=== PATIENT | female | born 1945 | race Caucasian/White ===

== ENCOUNTER → 2019-03-29 | Outpatient (CLI) | payer MEDICARE, MEDICAID ==
[2019-03-29 13:30] LABS: HCT 41.4 % (34.0-46.0); HGB 13.5 gm/dL (11.4-16.0); MCHC 32.6 g/dL (31.0-37.0); MCV 101.5 fL (80.0-100.0); Macrocytosis Slight; Mean Platelet Volume 6.9; Platelet Count 296 k/uL (150-450); RBC 4.08 m/uL (3.80-5.40); WBC 9.6 k/uL (3.8-10.6)
[2019-03-29 21:16] LABS: Albumin 4.4 g/dL (3.80-4.90); Anion Gap 9.9 mmol/L (4.00-12.00); BUN/Creat Ratio 18.89 Ratio (12.00-20.00); Calcium 9.6 mg/dL (8.7-10.3); Carbon Dioxide 22.1 mmol/L (21.6-31.8); Globulin 2.2 g/dL (1.6-3.3); Potassium 4.6 mmol/L (3.5-5.5); Total Bilirubin 0.3 mg/dL (0.3-1.2); Total Protein 6.6 g/dL (6.2-8.2)
== END ==
LOC: LABWHC1 12:03
PROVIDERS: ATTEND Surgery Plastic and Reconstructive Surgery
DX: K57.32 Diverticulitis of large intestine without perforation or abscess without bleeding (principal)
CPT/HCPCS: 36415; 80053; 85027

== ENCOUNTER → 2019-04-05 | Outpatient (CLI) | payer MEDICARE, OTHER ==
--- NOTE | 2019-04-05 13:55 | CT ---
EXAMINATION TYPE: CT abdomen pelvis wo con DATE OF EXAM: 04/05/2019 HISTORY: Diverticulitis of large intestine without perforation CT DLP: 639 mGycm. Automated Exposure Control for Dose Reduction was Utilized. TECHNIQUE: CT scan of the abdomen and pelvis is performed with oral but without IV contrast. COMPARISON: CT abdomen and pelvis June 22, 2016 FINDINGS: Within the limitations of a non-contrast study, the following observations are made. LUNG BASES: No significant abnormality is appreciated. LIVER/GB: Cholecystectomy clips redemonstrated. Persistent mild to moderate central intrahepatic bili christiano dilatation without significant extra hepatic biliary dilatation, no significant change from prior . Liver size upper limits of normal slightly diminished from prior. PANCREAS: No significant abnormality is seen. SPLEEN: No significant abnormality is seen. ADRENALS: Stable 2.3 cm right adrenal mass axial image 19, Hounsfield units average minus time consis tent with benign lipid rich adenoma. KIDNEYS: No significant abnormality is seen. BOWEL: Oral contrast has not reached the level of colon making evaluation of distal wall suboptimal. There is suspected wandering cecum into the left mid abdomen with dependent ingested nonabsorbed pill axial image 40. Sigmoid colon is poorly distended. No significant diverticulosis or acute diverticul itis. GENITAL ORGANS: Uterus surgically absent or markedly atrophic. LYMPH NODES: No greater than 1cm abdominal or pelvic lymph nodes are appreciated. OSSEOUS STRUCTURES: Left lateral translation of L5 on L4. Straightening of lumbar spine with moderate to advanced disc space narrowing L4-L5 level redemonstrated. Metallic artifact from left hip arthrop lasty current study causes streak artifact limiting evaluation of pelvic structures. Probably moderat e narrowing right hip joint. OTHER: Moderate calcified plaque of the aorta extends into branch vessels. Ectasia is present up to 2 .9 cm AP diameter axial image 30. No greater than 3.0 cm aneurysmal change. Persistent umbilical chavez ia containing fat and tiny mesenteric vessels on axial image 42 is stable. IMPRESSION: No significant diverticulosis or CT evidence for acute diverticulitis. Wandering see comm ents noted.
== END | disposition home or self-care (01) ==
LOC: RADCTMAIN 10:36
PROVIDERS: ATTEND Surgery Plastic and Reconstructive Surgery
DX: K57.32 Diverticulitis of large intestine without perforation or abscess without bleeding (principal)
CPT/HCPCS: 74176

== ENCOUNTER 2019-05-11 09:15 | Day surgery (SDC) | payer MEDICARE, OTHER ==
[2019-05-09 11:20] VITALS: BMI 20.9
--- NOTE | 2019-05-11 08:20 | P.GSHP ---
History of Present Illness H&P Date: 05/11/19 CHIEF COMPLAINT: GERD and colon screen HISTORY OF PRESENT ILLNESS: The patient is a 74-year-old female who presents with gastroesophageal reflux disease and need for colon screen. Upper and lower endoscopy were offered for further evaluation and management. PAST MEDICAL HISTORY: Please see list. PAST SURGICAL HISTORY: Please see list. MEDICATIONS: Please see list. ALLERGIES: Please see list. SOCIAL HISTORY: No illicit drug use FAMILY HISTORY: No reports of Crohn disease or ulcerative colitis. REVIEW OF ORGAN SYSTEMS: CONSTITUTIONAL: No reports of fevers or chills. GI: Denies any blood in stools or constipation. PHYSICAL EXAM: VITAL SIGNS: Stable GENERAL: Well-developed pleasant in no acute distress. HEENT: No scleral icterus. Extraocular movements grossly intact. Moist buccal mucosa. NECK: Supple without lymphadenopathy. CHEST: Unlabored respirations. Equal bilateral excursions. CARDIOVASCULAR: Regular rate and rhythm. Distal 2+ pulses. ABDOMEN: Soft, nondistended. MUSCULOSKELETAL: No clubbing, cyanosis, or edema. ASSESSMENT: 1. Gastroesophageal reflux disease 2. Colon screen. PLAN: 1. Recommend proceeding with an upper and lower endoscopy Past Medical History Past Medical History: GERD/Reflux, Hyperlipidemia, Hypertension, Thyroid Disorder Additional Past Medical History / Comment(s): hernia, anemia History of Any Multi-Drug Resistant Organisms: None Reported Past Surgical History: Appendectomy, Back Surgery, Cholecystectomy, Hysterectomy, Joint Replacement, Orthopedic Surgery Additional Past Surgical History / Comment(s): right knee scope. COLONOSCOPY/EGD. LT BRITNEY Past Anesthesia/Blood Transfusion Reactions: No Reported Reaction Smoking Status: Current every day smoker - Past Family History Mother History Unknown: Yes Father History Unknown: Yes Medications and Allergies Home Medications Medication Instructions Recorded Confirmed Type Folic Acid 0.4 mg PO DAILY 06/22/16 05/09/19 History Spironolactone [Aldactone] 25 mg PO DAILY 06/22/16 05/09/19 History Sucralfate [Carafate] 1 gm PO BID 06/22/16 05/09/19 History Cyanocobalamin [Vitamin B-12] 1,000 mcg PO DAILY 07/02/16 05/09/19 History Ferrous Sulfate [Iron (65 MG 325 mg PO DAILY 07/02/16 05/09/19 History Elemental)] Lovastatin [Mevacor] 40 mg PO HS 07/09/16 05/09/19 History Pantoprazole [Protonix] 40 mg PO DAILY tablet. 07/09/16 05/09/19 Rx Aspirin [Adult Low Dose Aspirin EC] 81 mg PO DAILY 05/09/19 05/09/19 History Atenolol [Tenormin] 25 mg PO DAILY 05/09/19 05/09/19 History Cholecalciferol (Vitamin D3) 2,000 unit PO DAILY 05/09/19 05/09/19 History [Vitamin D3] Gabapentin [Neurontin] 300 mg PO HS 05/09/19 05/09/19 History Levothyroxine Sodium [Synthroid] 112 mcg PO DAILY 05/09/19 05/09/19 History Potassium Chloride ER [K-Dur 20] 20 meq PO DAILY 05/09/19 05/09/19 History Venlafaxine HCl [Effexor XR] 150 mg PO DAILY 05/09/19 05/09/19 History Venlafaxine HCl [Effexor] 75 mg PO DAILY 05/09/19 05/09/19 History lamoTRIgine [LaMICtal] 25 mg PO DAILY 05/09/19 05/09/19 History Allergies Allergy/AdvReac Type Severity Reaction Status Date / Time No Known Allergies Allergy Verified 05/09/19 11:01
[~2019-05-11 09:15] MED LIST: LACTATED RINGERS 1,000 ML IV SCH; LIDOCAINE 1% 20 ML VIAL (10MG/ML) FOR IV START INTRADERMA PRN
[2019-05-11 09:48] VITALS: TEMP 97.7
[2019-05-11] MEDS ORDERED: PROPOFOL 10 MG/ML 20 ML VIAL IV ONE (10:14)
[2019-05-11] MEDS ORDERED: LIDOCAINE 1% INJ 10MG/ML (20 ML MDV) ONE (10:14)
[2019-05-11] MEDS ORDERED: MIDAZOLAM 2 MG/2 ML VIAL ONE (10:14)
[2019-05-11 10:54] VITALS: BP 98/53; PULSE 55; RESP 14
--- NOTE | 2019-05-11 10:57 | P.PCN ---
Date of Procedure: 05/11/19 Description of Procedure: PREOPERATIVE DIAGNOSIS: Change in bowel habits with colitis POSTOPERATIVE DIAGNOSIS: Change in bowel habits with colitis Ascending colon adenomas OPERATION: Colonoscopy to the ileocecal valve and appendiceal orifice. Colonoscopy with hot snare polypectomy Colonoscopy with cold forceps biopsy SURGEON: Eloisa Cope MD. ANESTHESIA: MAC. INDICATIONS: The patient is a 74-year-old female who presents with change in bowel habits and colitis. Benefits and risks were described and informed consent was obtained. DESCRIPTION OF PROCEDURE: The patient had undergone Suprep. She had been brought into the operating room and laid in the left lateral decubitus position. After adequate intravenous sedation, the rectum was examined with 2% lidocaine jelly. External hemorrhoids were encountered. The rectal tone was within normal limits. No lesions were palpated in the rectal vault. An Olympus colonoscope was advanced until the ileocecal valve and appendiceal orifice were clearly viewed. The prep was excellent. No scattered diverticulosis was encountered. Ascending olonic polyps were found and cold forcep biopsy or snare polypectomy. No acutecolitis was found. Retroflexion of the scope demonstrated grade 1 internal hemorrhoids without active bleeding or inflammation. The colon was desufflated. The patient had tolerated the procedure well. Withdrawal time was over 6 minutes. FINDINGS: Aronchick preparation quality scale 1 (1-5) Internal hemorrhoids, grade 1 External hemorrhoids, grade 1. No arteriovenous malformations No sigmoid diverticulosis Removal of 2 polyps: - Snare polypectomy proximal ascending colon, 8 mm tubulovillous adenoma polyp. - Cold forceps biopsy distal ascending colon, 4 mm flat villous adenoma polyp. No focal colitis. RECOMMENDATIONS: Repeat colonoscopy 3 years, 2021 Plan - Discharge Summary Discharge Rx Participant: No New Discharge Prescriptions: No Action Folic Acid 0.4 mg PO DAILY Sucralfate [Carafate] 1 gm PO BID Spironolactone [Aldactone] 25 mg PO DAILY Cyanocobalamin [Vitamin B-12] 1,000 mcg PO DAILY Ferrous Sulfate [Iron (65 MG Elemental)] 325 mg PO DAILY Pantoprazole [Protonix] 40 mg PO DAILY tablet. Lovastatin [Mevacor] 40 mg PO HS Potassium Chloride ER [K-Dur 20] 20 meq PO DAILY Levothyroxine Sodium [Synthroid] 112 mcg PO DAILY lamoTRIgine [LaMICtal] 25 mg PO DAILY Atenolol [Tenormin] 25 mg PO DAILY Venlafaxine HCl [Effexor] 75 mg PO DAILY Venlafaxine HCl [Effexor XR] 150 mg PO DAILY Gabapentin [Neurontin] 300 mg PO HS Cholecalciferol (Vitamin D3) [Vitamin D3] 2,000 unit PO DAILY Aspirin [Adult Low Dose Aspirin EC] 81 mg PO DAILY Discharge Medication List Folic Acid 0.4 mg PO DAILY 06/22/16 [History] Spironolactone [Aldactone] 25 mg PO DAILY 06/22/16 [History] Sucralfate [Carafate] 1 gm PO BID 06/22/16 [History] Cyanocobalamin [Vitamin B-12] 1,000 mcg PO DAILY 07/02/16 [History] Ferrous Sulfate [Iron (65 MG Elemental)] 325 mg PO DAILY 07/02/16 [History] Lovastatin [Mevacor] 40 mg PO HS 07/09/16 [History] Pantoprazole [Protonix] 40 mg PO DAILY tablet. 07/09/16 [Rx] Aspirin [Adult Low Dose Aspirin EC] 81 mg PO DAILY 05/09/19 [History] Atenolol [Tenormin] 25 mg PO DAILY 05/09/19 [History] Cholecalciferol (Vitamin D3) [Vitamin D3] 2,000 unit PO DAILY 05/09/19 [History] Gabapentin [Neurontin] 300 mg PO HS 05/09/19 [History] Levothyroxine Sodium [Synthroid] 112 mcg PO DAILY 05/09/19 [History] Potassium Chloride ER [K-Dur 20] 20 meq PO DAILY 05/09/19 [History] Venlafaxine HCl [Effexor XR] 150 mg PO DAILY 05/09/19 [History] Venlafaxine HCl [Effexor] 75 mg PO DAILY 05/09/19 [History] lamoTRIgine [LaMICtal] 25 mg PO DAILY 05/09/19 [History]
--- NOTE | 2019-05-11 11:01 | P.PCN ---
Date of Procedure: 05/11/19 Description of Procedure: PREOPERATIVE DIAGNOSIS: Gastroesophageal reflux disease. Epigastric abdominal pain POSTOPERATIVE DIAGNOSIS: Gastroesophageal reflux disease. 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 SURGEON: Eloisa Cope MD ANESTHESIA: MAC. INDICATIONS: The patient is a 74-year-old female who presents with a history of reflux disease and abdominal pain. Benefits and risks of the procedure were described. Informed consent was obtained. DESCRIPTION: The patient was brought into the endoscopy suite and laid in the left lateral decubitus position. An Olympus gastroscope was passed along the posterior oropharynx down to the distal esophagus where the squamocolumnar junction was encountered at 40 cm from the incisors. The stomach was entered and no bile reflux was found. Additional findings are listed below. Biopsies with cold forceps were obtained of the antrum. The first through third portion of the duodenum was examined with less than 3 mm angiodysplasia at third portion without bleeding. Retroflexion of the scope confirmed Hill grade 2 lower esophageal valve. The squamocolumnar junction demonstrated LA grade B erosive esophagitis. The stomach was desufflated. The patient tolerated the procedure well. FINDINGS: Squamocolumnar junction 40 cm from the incisors. Diaphragmatic hiatus at 42 cm. Hiatal hernia, 2 cm Hill grade 2 lower esophageal valve. LA grade B erosive esophagitis. No active duodenitis. Chronic gastritis with recent bleed Chronic superficial ulcers and antrum biopsied Angiodysplasia per portion of duodenum 2 mm without bleeding RECOMMENDATIONS: Upper endoscopy as needed. Treatment for ulcers for 4 weeks with proton pump inhibitor and Carafate
== END 2019-05-11 11:49 | disposition home or self-care (01) ==
LOC: ORWHC2ENDO 09:15
PROVIDERS: ATTEND Surgery Plastic and Reconstructive Surgery
DX: D12.2 Benign neoplasm of ascending colon (principal); K52.9 Noninfective gastroenteritis and colitis, unspecified; K64.0 First degree hemorrhoids; K64.4 Residual hemorrhoidal skin tags; K29.50 Unspecified chronic gastritis without bleeding; K21.0 Gastro-esophageal reflux disease with esophagitis; K22.10 Ulcer of esophagus without bleeding; K25.7 Chronic gastric ulcer without hemorrhage or perforation; K44.9 Diaphragmatic hernia without obstruction or gangrene; K31.819 Angiodysplasia of stomach and duodenum without bleeding; I10 Essential (primary) hypertension; E78.5 Hyperlipidemia, unspecified; E07.9 Disorder of thyroid, unspecified; D64.9 Anemia, unspecified; Z79.82 Long term (current) use of aspirin; Z79.890 Hormone replacement therapy; Z79.899 Other long term (current) drug therapy; Z90.49 Acquired absence of other specified parts of digestive tract; Z96.642 Presence of left artificial hip joint; Z98.890 Other specified postprocedural states
CPT/HCPCS: 88305; 45380; 45385; 43239; J2250; J2001; J2704

== ENCOUNTER 2021-03-22 14:06 | Inpatient (IN) | payer MEDICARE, OTHER ==
[2021-03-22] MEDS ORDERED: ONDANSETRON 4 MG/2 ML VIAL IVP STA (14:44)
[2021-03-22] MEDS ORDERED: SODIUM CHLORIDE 0.9% 1,000 ML IV STA (14:44)
[2021-03-22 15:17] LABS: Basophils % (A) 1 %; Eosinophils # (A) 0.2 k/uL (0-0.7); Eosinophils % (A) 2 %; HCT 44.4 % (34.0-46.0); HGB 15.1 gm/dL (11.4-16.0); Lymphocytes # (A) 1.5 k/uL (1.0-4.8); Lymphocytes % (A) 19 %; MCH 35.5 pg (25.0-35.0); MCV 104.5 fL (80.0-100.0); Macrocytosis Slight; Mean Platelet Volume 7.8; Monocytes # (A) 0.5 k/uL (0-1.0); Monocytes % (A) 6 %; Neutrophils # (A) 5.5 k/uL (1.3-7.7); Neutrophils % (A) 71 %; Platelet Count 216 k/uL (150-450); RBC 4.25 m/uL (3.80-5.40); RDW 13.9 % (11.5-15.5); WBC 7.8 k/uL (3.8-10.6)
[2021-03-22 15:26] LABS: ALT 19 U/L (4-34); AST 25 U/L (14-36); African American GFR (CKD) >90 (>60 ml/min/1.73 sqM); Albumin 4.2 g/dL (3.5-5.0); Alkaline Phosphatase 90 U/L (38-126); Anion Gap 6 mmol/L; Blood Urea Nitrogen 11 mg/dL (7-17); Calcium 9.8 mg/dL (8.4-10.2); Carbon Dioxide 28 mmol/L (22-30); Chloride 105 mmol/L (98-107); Glucose 103 mg/dL (74-99); Non-African American GFR(CKD) >90 (>60 ml/min/1.73 sqM); Potassium 2.9 mmol/L (3.5-5.1); Sodium 139 mmol/L (137-145); Total Bilirubin 0.9 mg/dL (0.2-1.3); Total Protein 6.6 g/dL (6.3-8.2)
[2021-03-22] MEDS ORDERED: POTASSIUM CHLORIDE ER 10 MEQ TAB.ER.PRT PO STA (15:30)
[2021-03-22 15:46] LABS: Prothrombin Time 10.3 sec (9.0-12.0)
[2021-03-22 15:48] LABS: Partial Thromboplastin Time 21.1 sec (22.0-30.0)
[2021-03-22 16:01] LABS: Appearance,Urine Clear (Clear); Bacteria,Urine Rare /hpf; Bilirubin,Urine Negative (Negative); Blood,Urine Trace (Negative); Color,Urine Yellow; Glucose,Urine (UA) Negative (Negative); Ketones,Urine Negative (Negative); Leukocyte Esterase,Urine Trace (Negative); Mucus,Urine Rare /hpf; Nitrite,Urine Negative (Negative); Protein,Urine 1+ (Negative); RBC,Urine 10 /hpf (0-5); Specific Gravity,Urine 1.011 (1.001-1.035); Squamous Epithelial Cell,Urine 1 /hpf (0-4); Urobilinogen,Urine <2.0 mg/dL (<2.0); WBC,Urine 2 /hpf (0-5)
--- NOTE | 2021-03-22 16:05 | ED ---
Weakness HPI - General Chief complaint: Weakness Stated complaint: ABD pain,SOB Time Seen by Provider: 03/22/21 14:39 Source: patient Mode of arrival: ambulatory Limitations: no limitations - History of Present Illness Initial comments: 76-year-old female presenting to the emergency department with a chief complaint of weakness and abdominal pain. Patient reports she did progressively feeling weaker over the last 2-3 months. Patient reports she has lost approximately 40 pounds of unattended weight loss over the last 10 months. States she has seen Dr. Maurice for chronic abdominal pain and had an upper and lower scope performed with no acute findings. She is not sure how long ago with these tests were performed. States over the last week she's had decreased oral intake is not able to take her pills due to not being able to swallow. However, states she still able to tolerate by mouth but does have decreased appetite. Her daughter states the patient has stopped taking her medications over the last week. She has also stopped taking care of herself. She denies nausea or vomiting but does report some diarrhea. Denies any vaginal symptoms. Does report increased urinary frequency over the last several months but denies any urgency or dysuria. Surgical history of appendectomy cholecystectomy. No hematuria or hematochezia or melena. - Related Data Home Medications Medication Instructions Recorded Confirmed Levothyroxine Sodium 125 mcg PO DAILY 03/22/21 03/22/21 Allergies Allergy/AdvReac Type Severity Reaction Status Date / Time No Known Allergies Allergy Verified 03/22/21 16:45 Review of Systems ROS Statement: Those systems with pertinent positive or pertinent negative responses have been documented in the HPI. ROS Other: All systems not noted in ROS Statement are negative. Past Medical History Past Medical History: GERD/Reflux, Hyperlipidemia, Hypertension, Thyroid Disorder Additional Past Medical History / Comment(s): hernia, anemia History of Any Multi-Drug Resistant Organisms: None Reported Past Surgical History: Appendectomy, Back Surgery, Cholecystectomy, Hysterectomy, Joint Replacement, Orthopedic Surgery Additional Past Surgical History / Comment(s): right knee scope. COLONOSCOPY/EGD. LT BRITNEY Past Anesthesia/Blood Transfusion Reactions: No Reported Reaction Past Psychological History: Anxiety, Depression Past Alcohol Use History: None Reported Past Drug Use History: None Reported - Past Family History Mother History Unknown: Yes Father History Unknown: Yes General Exam Limitations: no limitations General appearance: alert, in no apparent distress Head exam: Present: atraumatic, normocephalic, normal inspection Eye exam: Present: normal appearance, PERRL, EOMI Pupils: Present: normal accommodation ENT exam: Present: normal exam, normal oropharynx, mucous membranes moist Neck exam: Present: normal inspection, full ROM. Absent: tenderness Respiratory exam: Present: normal lung sounds bilaterally. Absent: respiratory distress, wheezes, rales, rhonchi, stridor Cardiovascular Exam: Present: regular rate, normal rhythm, normal heart sounds. Absent: systolic murmur GI/Abdominal exam: Present: soft, tenderness (Right upper quadrant epigastric abdominal tenderness.). Absent: distended, guarding Extremities exam: Present: normal inspection, full ROM, normal capillary refill. Absent: tenderness, pedal edema, joint swelling Back exam: Present: normal inspection, full ROM. Absent: tenderness, CVA tenderness (R), CVA tenderness (L) Neurological exam: Present: alert, oriented X3, CN II-XII intact, normal gait Psychiatric exam: Present: normal affect, normal mood Skin exam: Present: warm, dry, intact, normal color Course Vital Signs 03/22/21 03/22/21 03/22/21 14:13 14:46 17:41 Temperature 98.0 F Pulse Rate 86 84 Pulse Rate [ 77 Pediatric Oncology Nurse ] Respiratory 19 20 18 Rate Blood Pressure 141/72 154/78 O2 Sat by Pulse 98 97 Oximetry Medical Decision Making - Medical Decision Making 76-year-old female presenting to emergency Department with a chief complaint of abdominal pain and weakness. On physical examination, epigastric abdominal tenderness. I obtained the results from abdomen and pelvis with contrast CT imaging that was performed at [facility] which revealed infrarenal abdominal aortic aneurysm measuring 3.1 cm in diameter. Follow-up imaging was recommended in 3 years. These seem to be stable findings. Laboratory work shows hypokalemia with potassium of 2.9. Patient was given oral k-sudhir. I spoke to to admit the patient for a consult to and social work. He recommended outpatient follow-up instead and refuses admission. I contacted [facility] who will admit patient for Dr. Viveros. Case was discussed with Dr. Peterson who is agreeable with the plan. - Lab Data Result diagrams: 03/22/21 15:07 03/22/21 15:07 Lab Results 03/22/21 03/22/21 03/22/21 Range/Units 15:07 15:07 15:07 WBC 7.8 (3.8-10.6) k/uL RBC 4.25 (3.80-5.40) m/uL Hgb 15.1 (11.4-16.0) gm/dL Hct 44.4 (34.0-46.0) % MCV 104.5 H (80.0-100.0) fL MCH 35.5 H (25.0-35.0) pg MCHC 34.0 (31.0-37.0) g/dL RDW 13.9 (11.5-15.5) % Plt Count 216 (150-450) k/uL MPV 7.8 Neutrophils % 71 % Lymphocytes % 19 % Monocytes % 6 % Eosinophils % 2 % Basophils % 1 % Neutrophils # 5.5 (1.3-7.7) k/uL Lymphocytes # 1.5 (1.0-4.8) k/uL Monocytes # 0.5 (0-1.0) k/uL Eosinophils # 0.2 (0-0.7) k/uL Basophils # 0.0 (0-0.2) k/uL Macrocytosis Slight PT 10.3 (9.0-12.0) sec INR 1.0 (<1.2) APTT 21.1 L (22.0-30.0) sec Sodium 139 (137-145) mmol/L Potassium 2.9 L (3.5-5.1) mmol/L Chloride 105 (98-107) mmol/L Carbon Dioxide 28 (22-30) mmol/L Anion Gap 6 mmol/L BUN 11 (7-17) mg/dL Creatinine 0.54 (0.52-1.04) mg/dL Est GFR (CKD-EPI)AfAm >90 (>60 ml/min/1.73 sqM) Est GFR (CKD-EPI)NonAf >90 (>60 ml/min/1.73 sqM) Glucose 103 H (74-99) mg/dL Plasma Lactic Acid Oskar (0.7-2.0) mmol/L Calcium 9.8 (8.4-10.2) mg/dL Magnesium (1.6-2.3) mg/dL Total Bilirubin 0.9 (0.2-1.3) mg/dL AST 25 (14-36) U/L ALT 19 (4-34) U/L Alkaline Phosphatase 90 (38-126) U/L Troponin I (0.000-0.034) ng/mL Total Protein 6.6 (6.3-8.2) g/dL Albumin 4.2 (3.5-5.0) g/dL Urine Color Urine Appearance (Clear) Urine pH (5.0-8.0) Ur Specific [place] (1.001-1.035) Urine Protein (Negative) Urine Glucose (UA) (Negative) Urine Ketones (Negative) Urine Blood (Negative) Urine Nitrite (Negative) Urine Bilirubin (Negative) Urine Urobilinogen (<2.0) mg/dL Ur Leukocyte Esterase (Negative) Urine RBC (0-5) /hpf Urine WBC (0-5) /hpf Ur Squamous Epith Cells (0-4) /hpf Urine Bacteria (None) /hpf Urine Mucus (None) /hpf 03/22/21 03/22/21 03/22/21 Range/Units 15:07 15:07 15:07 WBC (3.8-10.6) k/uL RBC (3.80-5.40) m/uL Hgb (11.4-16.0) gm/dL Hct (34.0-46.0) % MCV (80.0-100.0) fL MCH (25.0-35.0) pg MCHC (31.0-37.0) g/dL RDW (11.5-15.5) % Plt Count (150-450) k/uL MPV Neutrophils % % Lymphocytes % % Monocytes % % Eosinophils % % Basophils % % Neutrophils # (1.3-7.7) k/uL Lymphocytes # (1.0-4.8) k/uL Monocytes # (0-1.0) k/uL Eosinophils # (0-0.7) k/uL Basophils # (0-0.2) k/uL Macrocytosis PT (9.0-12.0) sec INR (<1.2) APTT (22.0-30.0) sec Sodium (137-145) mmol/L Potassium (3.5-5.1) mmol/L Chloride (98-107) mmol/L Carbon Dioxide (22-30) mmol/L Anion Gap mmol/L BUN (7-17) mg/dL Creatinine (0.52-1.04) mg/dL Est GFR (CKD-EPI)AfAm (>60 ml/min/1.73 sqM) Est GFR (CKD-EPI)NonAf (>60 ml/min/1.73 sqM) Glucose (74-99) mg/dL Plasma Lactic Acid Oskar 1.2 (0.7-2.0) mmol/L Calcium (8.4-10.2) mg/dL Magnesium 2.1 (1.6-2.3) mg/dL Total Bilirubin (0.2-1.3) mg/dL AST (14-36) U/L ALT (4-34) U/L Alkaline Phosphatase (38-126) U/L Troponin I <0.012 (0.000-0.034) ng/mL Total Protein (6.3-8.2) g/dL Albumin (3.5-5.0) g/dL Urine Color Urine Appearance (Clear) Urine pH (5.0-8.0) Ur Specific [place] (1.001-1.035) Urine Protein (Negative) Urine Glucose (UA) (Negative) Urine Ketones (Negative) Urine Blood (Negative) Urine Nitrite (Negative) Urine Bilirubin (Negative) Urine Urobilinogen (<2.0) mg/dL Ur Leukocyte Esterase (Negative) Urine RBC (0-5) /hpf Urine WBC (0-5) /hpf Ur Squamous Epith Cells (0-4) /hpf Urine Bacteria (None) /hpf Urine Mucus (None) /hpf 03/22/21 Range/Units 15:13 WBC (3.8-10.6) k/uL RBC (3.80-5.40) m/uL Hgb (11.4-16.0) gm/dL Hct (34.0-46.0) % MCV (80.0-100.0) fL MCH (25.0-35.0) pg MCHC (31.0-37.0) g/dL RDW (11.5-15.5) % Plt Count (150-450) k/uL MPV Neutrophils % % Lymphocytes % % Monocytes % % Eosinophils % % Basophils % % Neutrophils # (1.3-7.7) k/uL Lymphocytes # (1.0-4.8) k/uL Monocytes # (0-1.0) k/uL Eosinophils # (0-0.7) k/uL Basophils # (0-0.2) k/uL Macrocytosis PT (9.0-12.0) sec INR (<1.2) APTT (22.0-30.0) sec Sodium (137-145) mmol/L Potassium (3.5-5.1) mmol/L Chloride (98-107) mmol/L Carbon Dioxide (22-30) mmol/L Anion Gap mmol/L BUN (7-17) mg/dL Creatinine (0.52-1.04) mg/dL Est GFR (CKD-EPI)AfAm (>60 ml/min/1.73 sqM) Est GFR (CKD-EPI)NonAf (>60 ml/min/1.73 sqM) Glucose (74-99) mg/dL Plasma Lactic Acid Oskar (0.7-2.0) mmol/L Calcium (8.4-10.2) mg/dL Magnesium (1.6-2.3) mg/dL Total Bilirubin (0.2-1.3) mg/dL AST (14-36) U/L ALT (4-34) U/L Alkaline Phosphatase (38-126) U/L Troponin I (0.000-0.034) ng/mL Total Protein (6.3-8.2) g/dL Albumin (3.5-5.0) g/dL Urine Color Yellow Urine Appearance Clear (Clear) Urine pH 7.0 (5.0-8.0) Ur Specific [place] 1.011 (1.001-1.035) Urine Protein 1+ H (Negative) Urine Glucose (UA) Negative (Negative) Urine Ketones Negative (Negative) Urine Blood Trace H (Negative) Urine Nitrite Negative (Negative) Urine Bilirubin Negative (Negative) Urine Urobilinogen <2.0 (<2.0) mg/dL Ur Leukocyte Esterase Trace H (Negative) Urine RBC 10 H (0-5) /hpf Urine WBC 2 (0-5) /hpf Ur Squamous Epith Cells 1 (0-4) /hpf Urine Bacteria Rare H (None) /hpf Urine Mucus Rare H (None) /hpf Disposition Clinical Impression: Abdominal pain, Failure to thrive, Hypokalemia Disposition: ADMITTED IP TO THIS HOSP Condition: Fair Is patient prescribed a controlled substance at d/c from ED?: No Referrals: None,Stated [Primary Care Provider] - 1-2 days Time of Disposition: 18:38
[2021-03-22] MEDS ORDERED: ALPRAZolam 1 MG TAB PO STA (17:30)
[2021-03-22] MEDS ORDERED: MORPHINE SULFATE 2 MG/ML SYRINGE IVP ONE (17:31)
[2021-03-22] MEDS ORDERED: NALOXONE 0.4 MG/ML 1 ML VIAL IV PRN (18:29)
[2021-03-22] MEDS: MORPHINE SULFATE 4 MG/ML SYRINGE IVP PRN (21:15)
[2021-03-22] MEDS: SODIUM CHLORIDE 0.9% 1,000 ML IV SCH (21:21)
[2021-03-23] MEDS: PANTOPRAZOLE 40 MG/10 ML VIAL IV SCH (08:43)
[2021-03-23] MEDS: MORPHINE SULFATE 4 MG/ML SYRINGE IVP PRN ×2 (11:02→23:47)
[2021-03-23] MEDS ORDERED: Potassium Replacement Protocol 1 EACH MISC MISCELLANE PRN (11:09)
[2021-03-23 11:17] VITALS: BMI 15.2
--- NOTE | 2021-03-23 11:22 | P.GSCN ---
History of Present Illness Consult date: 03/23/21 Reason for Consult: Abdominal pain History of present illness: This is a 76-year-old female who presents the hospital with complaints of epigas tric abdominal pain. Patient's been previously scope with Dr. Green found have evidence of peptic ulcer disease. Patient states her pain is in the epigastric area. She is requesting narcotic pain medication Past Medical History Past Medical History: GERD/Reflux, Hyperlipidemia, Hypertension, Thyroid Disorder Additional Past Medical History / Comment(s): hernia, anemia History of Any Multi-Drug Resistant Organisms: None Reported Past Surgical History: Appendectomy, Back Surgery, Cholecystectomy, Hysterectomy, Joint Replacement, Orthopedic Surgery Additional Past Surgical History / Comment(s): right knee scope. COLONOSCOPY/EGD. Bilateral total hip Past Anesthesia/Blood Transfusion Reactions: No Reported Reaction Past Psychological History: Anxiety, Depression Smoking Status: Current every day smoker Past Alcohol Use History: None Reported Additional Past Alcohol Use History / Comment(s): SMOKES 1-2 packs daily,started at 17yo Past Drug Use History: None Reported - Past Family History Mother History Unknown: Yes Father History Unknown: Yes Medications and Allergies Home Medications Medication Instructions Recorded Confirmed Type Levothyroxine Sodium 125 mcg PO DAILY 03/22/21 03/22/21 History Allergies Allergy/AdvReac Type Severity Reaction Status Date / Time No Known Allergies Allergy Verified 03/22/21 16:45 Surgical - Exam Vital Signs Temp Pulse Resp BP Pulse Ox 98.0 F 86 19 141/72 98 03/22/21 14:13 03/22/21 14:13 03/22/21 14:13 03/22/21 14:13 03/22/21 14:13 - General well developed, well nourished, no distress - Eyes PERRL - ENT normal pinna - Neck no masses - Respiratory normal expansion - Cardiovascular Rhythm: regular - Abdomen Abdomen: soft, non tender Results - Labs 03/22/21 15:07 03/23/21 08:12 Abnormal Lab Results - Last 24 Hours (Table) 03/22/21 03/22/21 03/22/21 Range/Units 15:07 15:07 15:07 MCV 104.5 H (80.0-100.0) fL MCH 35.5 H (25.0-35.0) pg APTT 21.1 L (22.0-30.0) sec Potassium 2.9 L (3.5-5.1) mmol/L Glucose 103 H (74-99) mg/dL Urine Protein (Negative) Urine Blood (Negative) Ur Leukocyte Esterase (Negative) Urine RBC (0-5) /hpf Urine Bacteria (None) /hpf Urine Mucus (None) /hpf 03/22/21 03/23/21 Range/Units 15:13 08:12 MCV (80.0-100.0) fL MCH (25.0-35.0) pg APTT (22.0-30.0) sec Potassium 3.3 L (3.5-5.1) mmol/L Glucose (74-99) mg/dL Urine Protein 1+ H (Negative) Urine Blood Trace H (Negative) Ur Leukocyte Esterase Trace H (Negative) Urine RBC 10 H (0-5) /hpf Urine Bacteria Rare H (None) /hpf Urine Mucus Rare H (None) /hpf Diabetes panel 03/22/21 03/23/21 Range/Units 15:07 08:12 Sodium 139 (137-145) mmol/L Potassium 2.9 L 3.3 L (3.5-5.1) mmol/L Chloride 105 (98-107) mmol/L Carbon Dioxide 28 (22-30) mmol/L BUN 11 (7-17) mg/dL Creatinine 0.54 (0.52-1.04) mg/dL Glucose 103 H (74-99) mg/dL Calcium 9.8 (8.4-10.2) mg/dL AST 25 (14-36) U/L ALT 19 (4-34) U/L Alkaline Phosphatase 90 (38-126) U/L Total Protein 6.6 (6.3-8.2) g/dL Albumin 4.2 (3.5-5.0) g/dL Calcium panel 03/22/21 Range/Units 15:07 Calcium 9.8 (8.4-10.2) mg/dL Albumin 4.2 (3.5-5.0) g/dL Pituitary panel 03/22/21 03/23/21 Range/Units 15:07 08:12 Sodium 139 (137-145) mmol/L Potassium 2.9 L 3.3 L (3.5-5.1) mmol/L Chloride 105 (98-107) mmol/L Carbon Dioxide 28 (22-30) mmol/L BUN 11 (7-17) mg/dL Creatinine 0.54 (0.52-1.04) mg/dL Glucose 103 H (74-99) mg/dL Calcium 9.8 (8.4-10.2) mg/dL Adrenal panel 03/22/21 03/23/21 Range/Units 15:07 08:12 Sodium 139 (137-145) mmol/L Potassium 2.9 L 3.3 L (3.5-5.1) mmol/L Chloride 105 (98-107) mmol/L Carbon Dioxide 28 (22-30) mmol/L BUN 11 (7-17) mg/dL Creatinine 0.54 (0.52-1.04) mg/dL Glucose 103 H (74-99) mg/dL Calcium 9.8 (8.4-10.2) mg/dL Total Bilirubin 0.9 (0.2-1.3) mg/dL AST 25 (14-36) U/L ALT 19 (4-34) U/L Alkaline Phosphatase 90 (38-126) U/L Total Protein 6.6 (6.3-8.2) g/dL Albumin 4.2 (3.5-5.0) g/dL Assessment and Plan Assessment: Epigastric pain with history of peptic ulcer disease. Patient will undergo EGD with Dr. Green on Thursday
[2021-03-23] MEDS: POTASSIUM CHLORIDE ER 20 MEQ TAB.ER PO SCH ×2 (12:09→13:09)
--- NOTE | 2021-03-23 12:19 | CONS ---
CONSULTATION DATE OF SERVICE: 03/23/2021. REQUESTING PHYSICIAN: Dr. Viveros. REASON FOR CONSULTATION: Abdominal pain, dysphagia, progressive weight loss of 30 pounds in the last one year duration. HISTORY OF PRESENT ILLNESS: The patient is a 76-year-old white female, known to me from her previous office visits, who was being evaluated for progressive weight loss of 40 pounds in the last one year duration associated with abdominal pain and difficulty swallowing. In fact, she was last seen in the office in November of this year for the above symptoms and she had extensive investigations done. She had an EGD colonoscopy by Dr. Cope in April of 2019 that showed mild gastritis, esophagitis, small gastric ulcers and colon polyp. Subsequently, she continued to have progressive weight loss and she continued to have persistent abdominal pain and was investigated with CT of the abdomen and pelvis in April of 2020 that was unremarkable in August of this year. She had an upper GI small bowel series done that was unremarkable. She had a repeat upper endoscopy done by [facility] in [facility] in January of 2020, that showed mild gastritis but otherwise no evidence of esophagitis or esophageal stricture. She was treated with PPIs and Carafate with no help. She had an MRI of the pancreas that did not show any pancreatic abnormality. In January of [address] angiogram that did not show any significant pathology except that she had a 3 cm aneurysm in the abdominal aorta. Now she presents to the emergency room complaining of abdominal pain mostly in the epigastric area radiating to the lower abdominal area associated with some nausea, dysphagia, and chronic constipation. She denies any rectal bleeding or melena. She thinks she lost about 40 pounds in the last one year duration. She states her appetite has been good. She reports no emesis. PAST MEDICAL HISTORY: No known drug allergies. The past medical history GERD, hyperlipidemia, hypertension, hypothyroidism. PAST SURGICAL HISTORY: EGD, colonoscopy, hernia repair, back surgery, appendectomy, cholecystectomy, hysterectomy. SOCIAL HISTORY: No smoking no alcohol use. FAMILY HISTORY: Unremarkable. REVIEW OF SYSTEMS: CARDIOPULMONARY: She denies any chest pain or shortness of breath. : No dysuria or hematuria. MUSCULOSKELETAL: Unremarkable. SKIN: Unremarkable. ENDOCRINE: Unremarkable. PSYCHIATRIC: Unremarkable. PSYCHIATRY: History of anxiety and depression. NEUROLOGY: Unremarkable. ENT/VISION: Unremarkable. CONSTITUTIONAL: Recent weight loss of 40 pounds but no fever chills night sweats. PHYSICAL EXAMINATION: She appears comfortable. No apparent distress. VITAL SIGNS: Stable. Blood pressure is 133/66, pulse rate is 76, temperature 98. HEENT examination unremarkable sclerae anicteric oral cavity no lesions. NECK: No JVD or lymph node enlargement. CHEST: Clear to auscultation. HEART: Regular rate and rhythm. ABDOMEN: Soft, it was nontender, nondistended. There was mild tenderness in the epigastric area. Bowel sounds are positive. No organomegaly. EXTREMITIES: No pedal edema. SKIN: No rashes. NEUROLOGIC: Alert and oriented x3. No focal deficits. LABS: Labs done at the time of admission hospital WBC 7.8, hemoglobin 15, platelets normal. Basic metabolic panel is within normal limits. Potassium is 2.9, albumin 4.2. IMPRESSION: 1. This is a lady with chronic abdominal pain of almost 2 years duration with symptoms progressively getting worse in the last one year associated with weight loss of almost 40 pounds. She had extensive investigations on an outpatient basis. Patient had upper endoscopy in January of 2021 at [facility] showed mild gastritis. Subsequently a CT angiogram was performed at [facility] that was reported as normal except for small abdominal aortic aneurysm, but there was no evidence of celiac artery stenosis. She had upper GI small-bowel series done in August of this year that was unremarkable. MRI of the pancreas in September of this year was unremarkable. She was treated with Prilosec, Protonix, Carafate, Bentyl, Levsin with no help. Recently was started on Librax with no help. It is unclear as to the etiology of her symptoms. She also had a colonoscopy by Dr. oCpe in April of 2019 that was unremarkable. 2. History of anxiety and depression. 3. History of hypothyroidism. RECOMMENDATIONS: 1. Obtain thyroid panel. 2. Advance diet as tolerated. 3. Dietary consultation for calorie count. 4. Obtain consultation with Dr. Cope as patient is known to her to evaluate chronic abdominal pain. 5. No need for any endoscopy intervention at the present time. We will follow with you. Thank you for this consultation. MMODL / IJN: [id number] /
[2021-03-23] MEDS: SODIUM CHLORIDE 0.9% 1,000 ML IV SCH ×2 (15:42→23:53)
[2021-03-23] MEDS: DICYCLOMINE 10 MG CAP PO PRN (15:42)
--- NOTE | 2021-03-24 00:39 | P.HPIM ---
History of Present Illness H&P Date: 03/23/21 Chief Complaint: Abdominal pain Patient is a 76-year-old female with a known history of hypertension, hyperlipidemia, hypothyroidism, GERD, anxiety/depression currently everyday smoker presents to ER with complaints of generalized weakness and unable to tolerate oral diet. Patient also complaining of epigastric abdominal pain. Complains of nausea with no episodes of vomiting. Denied any dysuria or hematuria. Patient is complaining of generalized weakness and weight loss. Patient has been feeling more weak recently and has been losing weight for the past 2 to 3 months. Denied any loss of appetite. Denied any hematemesis or melena. Patient last approximately 40 pounds of unintentional weight loss for the past 10 months. Patient was seen by Dr. Alexander for chronic abdominal pain and had a history of EGD and colonoscopy previously. Denied any chest pain or shortness breath. No fever no chills. No headache or dizziness or lightheadedness. According her daughter patient has stopped taking care of herself and stopped taking medications. EKG showed normal sinus rhythm Review of Systems Constitutional: Patient denies any fever or chills . No generalized weakness or weight loss. Abdomen: Patient does of epigastric abdominal pain and mild nausea. No vomiting or diarrhea. Cardiovascular: Patient denies any chest pain or short of breath no palpitations. Respiratory: patient denied any cough is from production. No shortness of breath Neurologic: Patient denied any numbness or tingling headache. Musculoskeletal: Patient denies any complaints of joint swelling or deformity. Skin: Negative Psychiatric: Negative Endocrine: No heat or cold intolerance. No recent weight gain. Genitourinary: No dysuria or hematuria. All other 14 point ROS negative except the above Past Medical History Past Medical History: GERD/Reflux, Hyperlipidemia, Hypertension, Thyroid Disorder Additional Past Medical History / Comment(s): hernia, anemia History of Any Multi-Drug Resistant Organisms: None Reported Past Surgical History: Appendectomy, Back Surgery, Cholecystectomy, Hysterectomy, Joint Replacement, Orthopedic Surgery Additional Past Surgical History / Comment(s): right knee scope. COLONOSCOPY/EGD. Bilateral total hip Past Anesthesia/Blood Transfusion Reactions: No Reported Reaction Past Psychological History: Anxiety, Depression Smoking Status: Current every day smoker Past Alcohol Use History: None Reported Additional Past Alcohol Use History / Comment(s): SMOKES 1-2 packs daily,started at 17yo Past Drug Use History: None Reported - Past Family History Mother History Unknown: Yes Father History Unknown: Yes Medications and Allergies Home Medications Medication Instructions Recorded Confirmed Type Levothyroxine Sodium 125 mcg PO DAILY 03/22/21 03/22/21 History Allergies Allergy/AdvReac Type Severity Reaction Status Date / Time No Known Allergies Allergy Verified 03/22/21 16:45 Physical Exam Vitals: Vital Signs Temp Pulse Pulse Pulse Resp BP BP 03/23/21 04:36 98 F 76 20 125/66 03/22/21 21:00 97.9 F 104 H 20 173/76 03/22/21 20:00 104 H 16 03/22/21 19:14 65 18 150/76 03/22/21 17:41 84 18 154/78 03/22/21 14:46 77 20 03/22/21 14:13 98.0 F 86 19 141/72 Pulse Ox 03/23/21 04:36 96 03/22/21 21:00 95 03/22/21 20:00 03/22/21 19:14 93 L 03/22/21 17:41 97 03/22/21 14:46 03/22/21 14:13 98 Intake and Output 03/22/21 03/23/21 03/23/21 22:59 06:59 14:59 Intake Total 200 Balance 200 Intake: Oral 200 Other: Voiding Method Toilet Bedside Commode # Voids 1 PHYSICAL EXAMINATION: Patient is lying in the bed comfortably, no acute distress, awake alert and oriented. Patient is mildly short. HEENT: Normocephalic. Neck is supple. Pupils reactive. Nostrils clear. Oral cavity is moist. Neck reveals no JVD, carotid bruits, or thyromegaly. CHEST EXAMINATION: Trachea is central. Symmetrical expansion. Lung corrales clear to auscultation and percussion. CARDIAC: Normal S1, S2 with no gallops. No murmurs ABDOMEN: Soft. Bowel sounds normal. No organomegaly. No abdominal bruits. Extremities: reveal no edema. No clubbing or cyanosis Neurologically awake, alert, oriented x3 with well-coordinated movements. No focal deficits noted Skin: No rash or skin lesions. Psychiatric: Coperative. Nonsuicidal Musculoskeletal: No joint swelling or deformity. Normal range of motion. Results CBC & Chem 7: 03/22/21 15:07 03/24/21 06:10 Labs: Abnormal Lab Results - Last 24 Hours (Table) 03/22/21 03/22/21 03/22/21 Range/Units 15:07 15:07 15:07 MCV 104.5 H (80.0-100.0) fL MCH 35.5 H (25.0-35.0) pg APTT 21.1 L (22.0-30.0) sec Potassium 2.9 L (3.5-5.1) mmol/L Glucose 103 H (74-99) mg/dL Urine Protein (Negative) Urine Blood (Negative) Ur Leukocyte Esterase (Negative) Urine RBC (0-5) /hpf Urine Bacteria (None) /hpf Urine Mucus (None) /hpf 03/22/21 03/23/21 Range/Units 15:13 08:12 MCV (80.0-100.0) fL MCH (25.0-35.0) pg APTT (22.0-30.0) sec Potassium 3.3 L (3.5-5.1) mmol/L Glucose (74-99) mg/dL Urine Protein 1+ H (Negative) Urine Blood Trace H (Negative) Ur Leukocyte Esterase Trace H (Negative) Urine RBC 10 H (0-5) /hpf Urine Bacteria Rare H (None) /hpf Urine Mucus Rare H (None) /hpf Thrombosis Risk Factor Assmnt - DVT/VTE Prophylaxis DVT/VTE Prophylaxis: Pharmacologic Prophylaxis ordered - Choose All That Apply Other Risk Factors: Yes Each Risk Factor Represents 2 Points: Age 61-74 years Other congenital or acquired thrombophilia - If yes, enter type in comment: No Thrombosis Risk Factor Assessment Total Risk Factor Score: 2 Thrombosis Risk Factor Assessment Level: Low Risk Assessment and Plan Assessment: Chronic abdominal pain unintentional weight loss. Patient had extensive work-up done including EGD/colonoscopy, CT angiogram and upper GI small bowel series and also MRI of the pancreas. Unclear etiology. Hypokalemia due to poor oral intake. Hypothyroidism Anxiety/depression Ongoing nicotine addiction Hypertension Hyperlipidemia GERD DVT prophylaxis and GI prophylaxis Plan: Patient will be continued on symptomatic management for nausea. Start on oral diet advance as tolerated. GI and general surgery is on board. Continue to follow closely and replace electrolytes. Time with Patient: Greater than 30
[2021-03-24] MEDS: ALPRAZolam 0.25 MG TAB PO PRN ×2 (01:10→21:22)
[2021-03-24] MEDS: DICYCLOMINE 10 MG CAP PO PRN (04:45)
[2021-03-24] MEDS: MORPHINE SULFATE 4 MG/ML SYRINGE IVP PRN ×3 (05:25→20:45)
[2021-03-24] MEDS: LEVOTHYROXINE 125 MCG TAB PO SCH (05:41)
[2021-03-24] MEDS: PANTOPRAZOLE 40 MG/10 ML VIAL IV SCH (07:57)
[2021-03-24] MEDS: HEPARIN SODIUM,PORCINE/PF 5,000 UNIT/0.5 ML SYRINGE SQ SCH ×2 (07:57→21:23)
[2021-03-24 09:30] LABS: African American GFR (CKD) 104.1 (60.0-200.0); Anion Gap 2.8 mmol/L (4.00-12.00); Calcium 8.5 mg/dL (8.7-10.3); Carbon Dioxide 26.2 mmol/L (21.6-31.8); Non-African American GFR(CKD) 89.8 (60.0-200.0); Potassium 4.2 mmol/L (3.5-5.5)
--- NOTE | 2021-03-24 11:35 | PN ---
PROGRESS NOTE DATE OF DICTATION: 03/24/2021 Patient is a 76-year-old pleasant white female admitted to the hospital with diffuse abdominal pain that has been progressively getting worse for the last 1-2 years' duration. She has intermittent nausea, difficulty swallowing, chronic constipation and progressive weight loss of 40 pounds. She was extensively investigated in the last 2 years. Recently she had an upper endoscopy a month ago at [facility] that was unremarkable. Subsequently she had a CT angiogram at [facility] that was reported as normal. Prior to that she had EGD and colonoscopy by Dr. Cope in May of 2019 that showed small polyps, diverticulosis and gastritis/esophagitis. She was treated symptomatically with PPIs and antispasmodics, with no help. Yesterday she was started back on Bentyl mg 3 times daily as well as Protonix. This morning she continues to complain of diffuse abdominal pain. No nausea, no vomiting. She states her appetite has been good. She had a bowel movement yesterday; no bleeding. PHYSICAL EXAMINATION: Appears comfortable. VITAL SIGNS: Stable. Blood pressure 106/60, pulse rate 76, temperature 97.5. HEENT EXAMINATION: Unremarkable. Conjunctivae pink. Sclerae anicteric. Oral cavity no lesions. NECK: No JVD. No lymph node enlargement. CHEST: Clear to auscultation. HEART: Regular rate and rhythm. ABDOMEN: Soft. Mild diffuse tenderness. EXTREMITIES: No pedal edema. NEURO: Alert and oriented x3. No focal deficits. LABS: Labs from today: basic metabolic panel is within normal limits. CBC is pending. IMPRESSION: Diffuse abdominal pain with progressive weight loss of 40 pounds in the last one year's duration. Extensive investigations for the last 2 years were all unremarkable. Recent upper endoscopy a month ago at [facility] was negative and a CT angiogram was also reported as negative. Etiology of her abdominal pain and progressive weight loss remains unclear at this time. Surgery has been consulted. RECOMMENDATIONS: 1. Advance diet as tolerated. 2. Continue antispasmodics as needed. 3. Await further recommendations by Dr. Cope. 4. Recommended a calorie count and dietary consultation. Will sign off at this time. No GI Service available from tomorrow. Thank you for this consultation. MMODL / IJN: [id number] /
--- NOTE | 2021-03-24 12:27 | P.PN ---
Progress Note - Text Progress Note Date: 03/24/21 Patient still has complaints of epigastric pain. On exam her lesser stable. Abdomen soft. History of peptic ulcers. Patient will be evaluated Dr. Green for possible EGD tomorrow.
[2021-03-24] MEDS: SODIUM CHLORIDE 0.9% 1,000 ML IV SCH (21:25)
[2021-03-25] MEDS: SODIUM CHLORIDE 0.9% 1,000 ML IV SCH ×2 (01:54→14:26)
[2021-03-25] MEDS: LEVOTHYROXINE 125 MCG TAB PO SCH (05:24)
[2021-03-25] MEDS: HEPARIN SODIUM,PORCINE/PF 5,000 UNIT/0.5 ML SYRINGE SQ SCH ×2 (08:04→21:00)
[2021-03-25] MEDS: PANTOPRAZOLE 40 MG/10 ML VIAL IV SCH (08:05)
[2021-03-25] MEDS: MORPHINE SULFATE 4 MG/ML SYRINGE IVP PRN ×2 (08:09→21:00)
--- NOTE | 2021-03-25 11:21 | CDI ---
Documentation Clarification Form Date: 03/26/2021 11:01:00 AM From: Clara Parker RN CCDS Admit Date: 03/22/2021 06:54:00 PM Patient Name: Alejandrina Michael Visit Number: [id number] Discharge Date: ATTENTION: The Clinical Documentation Specialists (CDI) and [facility] Coding Staff appreciate your assistance in clarifying documentation. Please respond to the clarification below the line at the bottom and electronically sign. The CDI & [facility] Coding staff will review the response and follow-up if needed. Please note: Queries are made part of the Legal Health Record. If you have any questions, please contact the author of this message via ITS. Dr. Tasia Moseley MD The Registered Dietitian assessment on 03/23 indicates this patient meets criteria for Chronic Severe Malnutrition. Based on this information and the findings below, is there an additional diagnosis that is clinically appropriate for this patient? History/Risk Factors: 76-year-old female presents to the ED with chronic abdominal pain and unintentional weight loss. Medical History: Gerd, HLD and HTN. Clinical Indicators: RD Consult Assessment Below 03/23 Current BMI: 15.2kg Insufficient energy intake: Estimated protein range (grams / kg) 1.2 -1.5 grams/kg. Estimated Protein Needs (grams/day) 84 105. Nutrition Diagnosis: Chronic Severe Malnutrition. Diagnosis related to the following: Weight Loss: Involuntary weight loss of 30% of UBW x one year. Loss of subcutaneous fat: Severe visible fat depletion. Loss of muscle mass: Severe visible muscle depletion. Additional comment: Temporalis muscle, subcutaneous fat loss in triceps / upper arm region. Treatment: Monitor PO, Diet Education, Calorie count x 3 days 03/23 03/25. Dietary Consult: See above. Is there an additional diagnosis that is clinically appropriate for this patient? [ ] Severe Protein-Calorie Malnutrition [ ] Other condition, please specify [ ] Unable to Determine Moderate pcm documented on medicine progress note 03/24 Dr Moseley . (Template Last Revised: September 2020) MTDD
--- NOTE | 2021-03-25 13:19 | P.GSCN ---
History of Present Illness Consult date: 03/25/21 History of present illness: CHIEF COMPLAINT: Unintentional weight loss and abdominal pain HISTORY OF PRESENT ILLNESS: The patient is a 76 year old female who was admitted to the hospital with abdominal pain 10/20/2020, 3 days ago. Most history obtained by her son at bedside this patient is hard of hearing and has poor recollection of events. Son reports that his mother lost moderate weight down to 100 pounds in the past 2+ years. In the past month, patient lost over 10+ pounds. Weight loss of at least 40 pounds in the past 10 months. Patient reports she has occasional troubles with swallowing liquids. She reports she is able to eat however. She reports primarily epigastric pain including atypical chest pain which has caused her weight loss. She has outpatient workup with the engineering librarian in the past 2 years including prior upper and lower en doscopies. Patient's son confirms that his mother often misses appointments and has lost her primary care provider as a result of no-shows. Last upper and lower endoscopy at this institution was in 2019 with findings of gastritis including gastric ulcers and ascending colon adenomas. Patient denies any blood in stools. She denies any hematemesis. General surgery is consulted for unexplained weight loss including abdominal pain. PAST MEDICAL HISTORY: See list and reviewed PAST SURGICAL HISTORY: See list and reviewed MEDICATIONS: See list and reviewed ALLERGIES: See list and reviewed SOCIAL HISTORY: See list and reviewed FAMILY HISTORY: See list and reviewed REVIEW OF ORGAN SYSTEMS: CONSTITUTIONAL: No fevers or chills. Unintentional weight loss over 10 pounds in 1 month. EYES: Denies any trouble with vision. No glasses. HEENT: No difficulties with hearing. No nosebleeds. Has difficulty swallowing. RESPIRATORY: Denies pneumonia. Current tobacco abuse disorder. CARDIOVASCULAR: Denies any chest pain, palpitations, or recent heart attacks. GASTROINTESTINAL: Denies fatty food intolerance. Has gastroesophageal reflux disease. Past history of ascending colon adenomas. Past history of gastric ulcers. History of cholecystectomy. Past appendectomy. GENITOURINARY: Denies any blood in urine or increased urinary frequency. NEUROLOGICAL: Denies any numbness or tingling along the distal extremities. No seizure disorders or headaches. MUSCULOSKELETAL: Has back pain, stiffness or joint arthritis. History of bilateral knee replacement. SKIN: No current skin cancer. No rash. PSYCHIATRIC: Has generalized anxiety disorder include depressive disorder. ENDOCRINE: Denies current thyroid disorders. Denies any blood sugar glucose intolerance. HEME/LYMPHATIC: Denies any lumps and bumps around the neck. No recent deep venous thrombosis. History of anemia. ALLERGY/IMMUNOLOGY: No immunoglobulin therapy. No immune deficiencies. BREAST: Denies current breast lumps, pain or nipple discharge. PHYSICAL EXAM: VITALS: Reviewed CONSTITUTIONAL: Well developed and in no acute distress. EYES: Conjuctivae without sclera icterus. Extraocular movements grossly i ntact. HEAD, EARS, NOSE, THROAT: Moist buccal mucosa. Head is atraumatic, normocephalic. Heart of hearing. No nasal drainage. NECK: No JV distention. No thyroidomegaly. RESPIRATORY: Non-labored respirations and equal bilateral excursions. No gross wheezes. CARDIOVASCULAR: Regular rate and rhythm. Extremities without moderate edema. Palpable 2+ radial pulses. ABDOMEN: No peritonitis. Tender at epigastrium. Umbilical hernia. Scaphoid abdomen. LYMPH: No gross neck lymphadenopathy. MUSCULOSKELETAL: No clubbing or cyanosis. SKIN: Warm and well perfused with good skin turgor. NEUROLOGIC: Cranial nerves II through XII grossly intact. No focal or lateralizing signs. PSYCH: Flat affect. Alert and oriented to person, place and time. CLINCAL LABS: Reviewed. WBC on admission 7.8. Hemoglobin on admission 15.2. Potassium on admission hypokalemia 2.8 now 4.2. TSH low with high T4. IMAGING: Independently reviewed CT of the abdomen and pelvis in 2015 with meandering cecum. No hiatal hernia at that time. Presence of umbilical hernia. This is my independent interpretation. EKG: Biatrial enlargement. ASSESSMENT: 1. Epigastric abdominal pain with unintentional weight loss 2. Chronic abdominal pain 3. Medical noncompliance with follow-up 4. Personal history of colon adenomas, ascending colon 5. Personal history of gastric ulcers 6. Dysphagia PLAN: 1. Patient seen and evaluated with son at side to give additional history. Patient is very hard of hearing and difficult to obtain additional history. 2. Scope for today canceled with esophagram needed due to dysphagia 3. Recommend start of diet. 4. We will reassess for upper endoscopy with bougie dilation pending imaging ADVANCE DIRECTIVE: Thank you for this kind consultation. Past Medical History Past Medical History: GERD/Reflux, Hyperlipidemia, Hypertension, Thyroid Disorder Additional Past Medical History / Comment(s): hernia, anemia History of Any Multi-Drug Resistant Organisms: None Reported Past Surgical History: Appendectomy, Back Surgery, Cholecystectomy, Hysterectom y, Joint Replacement, Orthopedic Surgery Additional Past Surgical History / Comment(s): right knee scope. COLONOSCOPY/EGD. Bilateral total hip Past Anesthesia/Blood Transfusion Reactions: No Reported Reaction Past Psychological History: Anxiety, Depression Smoking Status: Current every day smoker Past Alcohol Use History: None Reported Additional Past Alcohol Use History / Comment(s): SMOKES 1-2 packs daily,started at 17yo Past Drug Use History: None Reported - Past Family History Mother History Unknown: Yes Father History Unknown: Yes Medications and Allergies Home Medications Medication Instructions Recorded Confirmed Type Levothyroxine Sodium 125 mcg PO DAILY 03/22/21 03/22/21 History Allergies Allergy/AdvReac Type Severity Reaction Status Date / Time No Known Allergies Allergy Verified 03/22/21 16:45 Surgical - Exam Vital Signs Temp Pulse Resp BP Pulse Ox 98.0 F 86 19 141/72 98 03/22/21 14:13 03/22/21 14:13 03/22/21 14:13 03/22/21 14:13 03/22/21 14:13 Results - Labs 03/22/21 15:07 03/24/21 06:10 Abnormal Lab Results - Last 24 Hours (Table) 03/24/21 Range/Units 06:10 Free T4 3.00 H (0.80-1.80) ng/dL Microbiology - Last 24 Hours (Table) 03/22/21 14:45 Blood Culture - Preliminary Blood No Growth after 48 hours 03/22/21 15:00 Blood Culture - Preliminary Blood No Growth after 48 hours Assessment and Plan (1) Dysphagia Current Visit: Yes Status: Acute Code(s): R13.10 - DYSPHAGIA, UNSPECIFIED SNOMED Code(s): 69821493 (2) Unintentional weight loss Current Visit: Yes Status: Acute Code(s): R63.4 - ABNORMAL WEIGHT LOSS SNOMED Code(s): 093914368 (3) Body mass index (BMI) less than 16.5 Current Visit: Yes Status: Acute Code(s): Z68.1 - BODY MASS INDEX [BMI] 19.9 OR LESS, ADULT SNOMED Code(s): 974538431 (4) Underweight due to inadequate caloric intake Current Visit: Yes Status: Acute Code(s): R63.6 - UNDERWEIGHT SNOMED Code(s): 219010628 (5) Tobacco abuse disorder Current Visit: Yes Status: Acute Code(s): Z72.0 - TOBACCO USE SNOMED Code(s): 989211564 (6) Hard of hearing Current Visit: Yes Status: Acute Code(s): H91.90 - UNSPECIFIED HEARING LOSS, UNSPECIFIED EAR SNOMED Code(s): 90000222 (7) Noncompliance by declining service Current Visit: Yes Status: Acute Code(s): Z53.29 - PROC/TRTMT NOT CRD OUT BEC PT DECISION FOR OTH REASONS SNOMED Code(s): 915597054 (8) Epigastric pain Current Visit: Yes Status: Acute Code(s): R10.13 - EPIGASTRIC PAIN SNOMED Code(s): 39187491 (9) Chronic abdominal pain Current Visit: Yes Status: Acute Code(s): R10.9 - UNSPECIFIED ABDOMINAL PAIN; G89.29 - OTHER CHRONIC PAIN SNOMED Code(s): 467181436
[2021-03-26] MEDS: MORPHINE SULFATE 4 MG/ML SYRINGE IVP PRN ×3 (03:00→20:42)
[2021-03-26] MEDS: SODIUM CHLORIDE 0.9% 1,000 ML IV SCH ×2 (05:29→09:06)
[2021-03-26] MEDS: LEVOTHYROXINE 100 MCG TAB PO SCH (05:50)
[2021-03-26] MEDS: PANTOPRAZOLE 40 MG/10 ML VIAL IV SCH (09:06)
[2021-03-26] MEDS: HEPARIN SODIUM,PORCINE/PF 5,000 UNIT/0.5 ML SYRINGE SQ SCH ×2 (09:06→20:42)
--- NOTE | 2021-03-26 10:03 | P.PN ---
Subjective Progress Note Date: 03/24/21 Patient is a 76-year-old female with a known history of hypertension, hyperlipidemia, hypothyroidism, GERD, anxiety/depression currently everyday smoker presents to ER with complaints of generalized weakness and unable to tolerate oral diet. Patient also complaining of epigastric abdominal pain. Complains of nausea with no episodes of vomiting. Denied any dysuria or hematuria. Patient is complaining of generalized weakness and weight loss. Patient has been feeling more weak recently and has been losing weight for the past 2 to 3 months. Denied any loss of appetite. Denied any hematemesis or m luis alberto. Patient last approximately 40 pounds of unintentional weight loss for the past 10 months. Patient was seen by Dr. Alexander for chronic abdominal pain and had a history of EGD and colonoscopy previously. Denied any chest pain or shortness breath. No fever no chills. No headache or dizziness or lightheadedness. According her daughter patient has stopped taking care of herself and stopped taking medications. EKG showed normal sinus rhythm 03/24/2021 Patient is currently sitting in a chair comfortably. Able to tolerate her breakfast. Still complaining of abdominal pain. Patient was seen by general surgery. Dr. Chan is planning to see her tomorrow for possible EGD.. No complaints of nausea or vomiting. Denied any diarrhea. No constipation. Patient had previous extensive workup for abdominal pain. No complaints of chest pain or shortness of breath. current medications reviewed. Objective - Vital Signs Vital signs: Vital Signs Temp 97.4 F L 03/24/21 12:56 Pulse 60 03/24/21 14:01 Resp 17 03/24/21 12:56 BP 103/63 03/24/21 14:01 Pulse Ox 97 03/24/21 12:56 Intake & Output 03/23/21 03/24/21 03/24/21 18:59 06:59 18:59 Intake Total 120 1400 Balance 120 1400 Weight 45.359 kg Intake: Intake, IV Titration 900 Amount Sodium Chloride 0.9% 1, 900 000 ml @ 75 mls/hr IV . [id number] [facility] Rx#:[id number] Oral 120 500 Other: Voiding Method Toilet Toilet Toilet Bedside Commode Bedside Commode Bedside Commode # Voids 1 4 - Exam PHYSICAL EXAMINATION: Patient is lying in the bed comfortably, no acute distress, awake alert and oriented. Patient is mildly short. HEENT: Normocephalic. Neck is supple. Pupils reactive. Nostrils clear. Oral cavity is moist. Neck reveals no JVD, carotid bruits, or thyromegaly. CHEST EXAMINATION: Trachea is central. Symmetrical expansion. Lung corrales clear to auscultation and percussion. CARDIAC: Normal S1, S2 with no gallops. No murmurs ABDOMEN: Soft. Bowel sounds normal. No organomegaly. No abdominal bruits. Extremities: reveal no edema. No clubbing or cyanosis Neurologically awake, alert, oriented x3 with well-coordinated movements. No focal deficits noted Skin: No rash or skin lesions. Psychiatric: Coperative. Nonsuicidal Musculoskeletal: No joint swelling or deformity. Normal range of motion. - Labs CBC & Chem 7: 03/22/21 15:07 03/24/21 06:10 Labs: Abnormal Lab Results - Last 24 Hours (Table) 03/24/21 Range/Units 06:10 Chloride 114 H (96-109) mmol/L Anion Gap 2.80 L (4.00-12.00) mmol/L BUN/Creatinine Ratio 40.00 H (12.00-20.00) Ratio Calcium 8.5 L (8.7-10.3) mg/dL TSH 0.030 L (0.350-5.500) uIU/mL Microbiology - Last 24 Hours (Table) 03/22/21 14:45 Blood Culture - Preliminary Blood No Growth after 24 hours 03/22/21 15:00 Blood Culture - Preliminary Blood No Growth after 24 hours Assessment and Plan Assessment: Chronic abdominal pain unintentional weight loss. Patient had extensive work-up done including EGD/colonoscopy, CT angiogram and upper GI small bowel series and also MRI of the pancreas. Unclear etiology. Hypokalemia due to poor oral intake. Hypothyroidism Anxiety/depression Ongoing nicotine addiction Hypertension Hyperlipidemia Moderate protein calorie malnutrition GERD DVT prophylaxis and GI prophylaxis Plan: Patient will be continued on symptomatic management for nausea. Start on oral diet advance as tolerated. GI and general surgery is is following. Possible EGD once evaluated by Dr. Chan.. Continue to follow closely and replace electrolytes. Time with Patient: Greater than 30
--- NOTE | 2021-03-26 10:05 | P.PN ---
Subjective Progress Note Date: 03/25/21 Principal diagnosis: Abdominal pain Patient is a 76-year-old female with a known history of hypertension, hyperlipidemia, hypothyroidism, GERD, anxiety/depression currently everyday smoker presents to ER with complaints of generalized weakness and unable to tolerate oral diet. Patient also complaining of epigastric abdominal pain. Complains of nausea with no episodes of vomiting. Denied any dysuria or hematuria. Patient is complaining of generalized weakness and weight loss. Patient has been feeling more weak recently and has been losing weight for the past 2 to 3 months. Denied any loss of appetite. Denied any hematemesis or melena. Patient last approximately 40 pounds of unintentional weight loss for the past 10 months. Patient was seen by Dr. Alexander for chronic abdominal pain and had a history of EGD and colonoscopy previously. Denied any chest pain or shortness breath. No fever no chills. No headache or dizziness or lightheadedness. According her daughter patient has stopped taking care of herself and stopped taking medications. EKG showed normal sinus rhythm 03/24/2021 Patient is currently sitting in a chair comfortably. Able to tolerate her marlene akfast. Still complaining of abdominal pain. Patient was seen by general surgery. Dr. Chan is planning to see her tomorrow for possible EGD.. No complaints of nausea or vomiting. Denied any diarrhea. No constipation. Patient had previous extensive workup for abdominal pain. No complaints of chest pain or shortness of breath. 03/25/2021 Patient is currently lying in the bed. Awake alert and oriented 3. Tolerating oral diet. General surgery has seen the patient and planning for is a background tried to do any endoscopy. Patient was found have elevated free T4 level and low TSH level. Decrease levothyroxine dose 200 g daily. Arrest patient has been afebrile. No diarrhea. No chest pain or shortness of breath. current medications reviewed. Objective - Vital Signs Vital signs: Vital Signs Temp 97.5 F L 03/25/21 11:20 Pulse 59 L 03/25/21 11:20 Resp 18 03/25/21 11:20 BP 127/76 03/25/21 11:20 Pulse Ox 98 03/25/21 11:20 Intake & Output 03/24/21 03/25/21 03/25/21 18:59 06:59 18:59 Intake Total 900 825 Balance 900 825 Weight 45.359 kg Intake: Intake, IV Titration 900 825 Amount Sodium Chloride 0.9% 1, 900 825 000 ml @ 75 mls/hr IV . [id number] [facility] Rx#:[id number] Oral 0 Other: Voiding Method Toilet Toilet Toilet Bedside Commode Bedside Commode Bedside Commode # Voids 4 1 - Exam PHYSICAL EXAMINATION: Patient is lying in the bed comfortably, no acute distress, awake alert and oriented. Patient is mildly short. HEENT: Normocephalic. Neck is supple. Pupils reactive. Nostrils clear. Oral cavity is moist. Neck reveals no JVD, carotid bruits, or thyromegaly. CHEST EXAMINATION: Trachea is central. Symmetrical expansion. Lung corrales clear to auscultation and percussion. CARDIAC: Normal S1, S2 with no gallops. No murmurs ABDOMEN: Soft. Bowel sounds normal. No organomegaly. No abdominal bruits. Extremities: reveal no edema. No clubbing or cyanosis Neurologically awake, alert, oriented x3 with well-coordinated movements. No focal deficits noted Skin: No rash or skin lesions. Psychiatric: Coperative. Nonsuicidal Musculoskeletal: No joint swelling or deformity. Normal range of motion. - Labs CBC & Chem 7: 03/22/21 15:07 03/24/21 06:10 Labs: Abnormal Lab Results - Last 24 Hours (Table) 03/24/21 Range/Units 06:10 Free T4 3.00 H (0.80-1.80) ng/dL Microbiology - Last 24 Hours (Table) 03/22/21 14:45 Blood Culture - Preliminary Blood No Growth after 48 hours 03/22/21 15:00 Blood Culture - Preliminary Blood No Growth after 48 hours Assessment and Plan Assessment: Chronic abdominal pain unintentional weight loss. Patient had extensive work-up done including EGD/colonoscopy, CT angiogram and upper GI small bowel series and also MRI of the pancreas. Unclear etiology. Hypokalemia due to poor oral intake. Hypothyroidism with elevated free T4 level and low TSH level. Decreased l evothyroxine dose to 100 g daily. Anxiety/depression Ongoing nicotine addiction Hypertension Hyperlipidemia GERD DVT prophylaxis and GI prophylaxis Plan: Patient will be continued on symptomatic management for nausea. Start on oral diet advance as tolerated. GI and general surgery is on board. Continue to follow closely and replace electrolytes. Time with Patient: Greater than 30
--- NOTE | 2021-03-26 13:40 | P.CN ---
Psychiatric Consult - . Consult date: 03/26/21 Consult:: 03/26/21 12:49 IDENTIFYING DATA: This patient is a 76-year-old female who currently lives with her son and ex- in the house and has 3 kids and 6 grandchildren. REASON FOR REFERRAL: Psychiatry was consulted for depression and refusing medications and caring for herself. HISTORY OF PRESENT ILLNESS: The patient presented to the hospital initially to the hospital on 03/22. Patient apparently was in complaining of weakness and abdominal pain. She was claiming that it was been going on for the past 2-3 months and had apparently lost 40 pounds in the last 10 months. Patient claimed that she had stopped taking her medications and patient's daughter states that she stopped taking care of herself and has been canceling her doctor's appointments. Patient was seen in the room today and was agreeable to see comic book writer. She was fairly concrete and was vague about her symptoms. She states that she came in for abdominal and chest pain and claims it is still ongoing. She claims that she is eating better at this time and was feeling hungry. She claims that she feels overwhelmed by being in the hospital. She is denying any anhedonia or depression at this time however does state that she has a history of depression and anxiety. She states that her anxiety has been chronic and she has been having poor sleep approximately 1-2 hours a night. She states that she has been usually going to [facility] however has stopped going to the appointments and did not give a specific reason why. She claims that "I'm not sure why". She states that she has not been taking her medications at home . At this time patient denies any suicidal or homical ideations, intent or plan. Patient denies any auditory, visual hallucinations and denies any paranoia or delusions. Patients admits to using cigarettes daily however no other recreational drugs. PAST PSYCHIATRIC HISTORY: Patient has a a history of anxiety and depression. Patient denies being on any psychiatric medications. She states that she has been admitted several times to a psychiatric hospital. She claims that she is to follow-up at [facility] however has not gone in quite some time now. She states that she has had a couple of suicide attempts where she cut her wrist and overdosed in the past. Past Medical History: GERD/Reflux, Hyperlipidemia, Hypertension, Thyroid Disorder Additional Past Medical History / Comment(s): hernia, anemia ALLERGIES: as per EMR. CHEMICAL DEPENDENCY HISTORY: as per HPI. FAMILY PSYCHIATRIC/SUBSTANCE USE HISTORY: denies SOCIAL HISTORY: Patient was born and raised in [place], [place]. She states that she completed her GED and used to work in a factory for approximately 27 years. She states that she is unemployed at this time lives with her son and ex- house. She states that she has 3 kids and 6 grandchildren. She states that she has no legal history. MENTAL STATUS EXAM: General Appearance: Patient appears to be older than stated age is alert, vague at times however is directable. Patient appears to have fair hygiene and grooming wearing hospital gown with fair eye contact. Behavior: Patient is calmly lying in bed without any agitated behavior. Speech: Patient's speech is fluent and nonpressured. Mood/Affect: Patient reports their mood is "anxious", affect is congruent Suicidality/Homicidality: Patient denies having any suicidal or homicidal ideation intent or plan. Perceptions: Patient denies any visual hallucinations and denies any auditory hallucinations Though content/process: There is no evidence of any delusional thought content and thought process is linear and goal-directed. Vague. Memory and concentration: AOX3, grossly intact for the purposes of this session. Can spell "WORLD" backwards Judgment and insight: poor IMPRESSIONS: Major depressive disorder, mild Generalized anxiety disorder Nicotine dependence PLAN: -At this time patient DOES NOT meet criteria for inpatient psychiatric admission. -Would recommend the following medication changes/additions: Discontinue Xanax a t this time. Started Remeron 15 mg daily at bedtime for mood/anxiety/appetite. Start Cymbalta 20 mg daily for mood/anxiety. -chute worker to provide patient with outpatient mental health/psychiatry resources for appropriate follow up upon discharge -Communicated plan to patient's nurse -Will continue to follow along and likely sign off tomorrow. -Please contact with any questions. 03/26/21 13:33
--- NOTE | 2021-03-26 16:12 | FL ---
ESOPHOGRAM. HISTORY: Dysphagia Esophagram was performed per the air contrast technique. The patient swallowed barium and effervesce nt crystals without difficulty or delay. Esophageal peristalsis and motility appear to be within normal limits. There is no evidence for filling defect, mass or diverticulum. No hiatal hernia seen. Subsequently single contrast cervical esophagram was performed which fails demonstrate evidence for a spiration penetration or mass. IMPRESSION: Unremarkable study.
[2021-03-26] MEDS: DULoxetine HCL 20 MG CAPSULE.DR PO SCH (17:17)
--- NOTE | 2021-03-26 20:31 | P.PN ---
Subjective Progress Note Date: 03/26/21 CHIEF COMPLAINT: Dysphagia and abdominal pain HISTORY OF PRESENT ILLNESS: The patient is a 76-year-old female with chronic epigastric abdominal pain. She also reports dysphagia. She completed esophagra m. She reports pain particularly with swallowing and epigastric abdominal pain. She had psychological consultation. ROS: No reports of nausea and vomiting. No bowel movements. No fevers or chills. No new chest pain. No productive sputum PHYSICAL EXAM: VITAL SIGNS: Reviewed CONSTITUTIONAL: Well developed and in no acute distress. EYES: Conjuctivae without sclera icterus. Extraocular movements grossly intact. HEAD, EARS, NOSE, THROAT: Moist buccal mucosa. Head is atraumatic, normocepha lic. Hears conversational speech. No nasal drainage. NECK: Supple. No thyroidomegaly. RESPIRATORY: Non-labored respirations and equal bilateral excursions. CARDIOVASCULAR: Palpable 2+ radial pulses. Regular rate. Regular rhythm. ABDOMEN: Soft. No peritonitis. MUSCULOSKELETAL: No gross deformity of the lower extremities noted. No clubbing. No cyanosis. SKIN: Good skin turgor. Well perfused. NEUROLOGIC: Cranial nerves II through XII grossly intact. No focal or lateralizing signs. PSYCH: Appropriate affect. Alert and oriented to person, place and time. CLINICAL LABS: TSH suppressed. STUDIES: Esophagram independently reviewed without mucosal abnormality or hiatal hernia. This is my independent interpretation. ASSESSMENT: 1. Chronic abdominal pain, epigastric 2. Dysphagia 3. Odynophagia PLAN: 1. Upon further discussion, we'll proceed with upper endoscopy was possible rigid dilation to address oral pharyngeal esophageal dysphagia. Objective - Vital Signs Vital signs: Vital Signs Temp 97.8 F 03/26/21 12:22 Pulse 59 L 03/26/21 12:22 Resp 17 03/26/21 12:22 BP 116/59 03/26/21 12:22 Pulse Ox 94 L 03/26/21 12:22 Intake & Output 03/25/21 03/26/21 03/26/21 18:59 06:59 18:59 Intake Total 350 Balance 350 Weight 45.359 kg 45.359 kg Intake: Oral 350 Other: Voiding Method Toilet Toilet Toilet Bedside Commode Bedside Commode # Voids 1 2 2 # Bowel Movements 1 - Labs CBC & Chem 7: 03/22/21 15:07 03/24/21 06:10 Labs: Microbiology - Last 24 Hours (Table) 03/22/21 14:45 Blood Culture - Preliminary Blood No Growth after 96 hours 03/22/21 15:00 Blood Culture - Preliminary Blood No Growth after 96 hours Assessment and Plan (1) Dysphagia Current Visit: Yes Status: Acute Code(s): R13.10 - DYSPHAGIA, UNSPECIFIED SNOMED Code(s): 88276661 (2) Unintentional weight loss Current Visit: Yes Status: Acute Code(s): R63.4 - ABNORMAL WEIGHT LOSS SNOMED Code(s): 167368701 (3) Body mass index (BMI) less than 16.5 Current Visit: Yes Status: Acute Code(s): Z68.1 - BODY MASS INDEX [BMI] 19.9 OR LESS, ADULT SNOMED Code(s): 175555926 (4) Underweight due to inadequate caloric intake Current Visit: Yes Status: Acute Code(s): R63.6 - UNDERWEIGHT SNOMED C ode(s): 881895901 (5) Tobacco abuse disorder Current Visit: Yes Status: Acute Code(s): Z72.0 - TOBACCO USE SNOMED Code(s): 765213240 (6) Hard of hearing Current Visit: Yes Status: Acute Code(s): H91.90 - UNSPECIFIED HEARING LOSS, UNSPECIFIED EAR SNOMED Code(s): 90666643 (7) Noncompliance by declining service Current Visit: Yes Status: Acute Code(s): Z53.29 - PROC/TRTMT NOT CRD OUT BEC PT DECISION FOR OTH REASONS SNOMED Code(s): 293322746 (8) Epigastric pain Current Visit: Yes Status: Acute Code(s): R10.13 - EPIGASTRIC PAIN SNOMED Code(s): 52369467 (9) Chronic abdominal pain Current Visit: Yes Status: Acute Code(s): R10.9 - UNSPECIFIED ABDOMINAL PAIN; G89.29 - OTHER CHRONIC PAIN SNOMED Code(s): 466641762
[2021-03-26] MEDS ORDERED: MIRTAZAPINE 15 MG TAB PO SCH (21:00)
[2021-03-27] MEDS: LEVOTHYROXINE 100 MCG TAB PO SCH (06:02)
[2021-03-27] MEDS: SODIUM CHLORIDE 0.9% 1,000 ML IV SCH ×2 (06:22→14:53)
[2021-03-27 06:48] LABS: Basophils % (A) 1 %; Eosinophils # (A) 0.4 k/uL (0-0.7); Eosinophils % (A) 6 %; HCT 34.5 % (34.0-46.0); Lymphocytes # (A) 1.5 k/uL (1.0-4.8); Lymphocytes % (A) 25 %; MCH 35.8 pg (25.0-35.0); MCHC 33.6 g/dL (31.0-37.0); MCV 106.5 fL (80.0-100.0); Macrocytosis Moderate; Mean Platelet Volume 8.2; Monocytes # (A) 0.5 k/uL (0-1.0); Monocytes % (A) 9 %; Neutrophils # (A) 3.4 k/uL (1.3-7.7); Neutrophils % (A) 56 %; Platelet Count 168 k/uL (150-450); RBC 3.24 m/uL (3.80-5.40); RDW 14.3 % (11.5-15.5); WBC 6.1 k/uL (3.8-10.6)
[2021-03-27 06:49] LABS: HGB 11.6 gm/dL (11.4-16.0)
[2021-03-27] MEDS: HEPARIN SODIUM,PORCINE/PF 5,000 UNIT/0.5 ML SYRINGE SQ SCH (08:07)
[2021-03-27] MEDS: DULoxetine HCL 20 MG CAPSULE.DR PO SCH (08:07)
[2021-03-27] MEDS ORDERED: PANTOPRAZOLE 40 MG TABLET PO SCH (09:00)
[2021-03-27 09:18] VITALS: RESP 14; TEMP 97.5
--- NOTE | 2021-03-27 10:17 | P.PN ---
Subjective Progress Note Date: 03/26/21 Principal diagnosis: Abdominal pain Patient is a 76-year-old female with a known history of hypertension, hyperlipidemia, hypothyroidism, GERD, anxiety/depression currently everyday smoker presents to ER with complaints of generalized weakness and unable to tolerate oral diet. Patient also complaining of epigastric abdominal pain. Complains of nausea with no episodes of vomiting. Denied any dysuria or hematuria. Patient is complaining of generalized weakness and weight loss. Patient has been feeling more weak recently and has been losing weight for the past 2 to 3 months. Denied any loss of appetite. Denied any hematemesis or melena. Patient last approximately 40 pounds of unintentional weight loss for the past 10 months. Patient was seen by Dr. Alexander for chronic abdominal pain and had a history of EGD and colonoscopy previously. Denied any chest pain or shortness breath. No fever no chills. No headache or dizziness or lightheadedness. According her daughter patient has stopped taking care of herself and stopped taking medications. EKG showed normal sinus rhythm 03/24/2021 Patient is currently sitting in a chair comfortably. Able to tolerate her marlene akfast. Still complaining of abdominal pain. Patient was seen by general surgery. Dr. Chan is planning to see her tomorrow for possible EGD.. No complaints of nausea or vomiting. Denied any diarrhea. No constipation. Patient had previous extensive workup for abdominal pain. No complaints of chest pain or shortness of breath. 03/25/2021 Patient is currently lying in the bed. Awake alert and oriented 3. Tolerating oral diet. General surgery has seen the patient and planning for is a background tried to do any endoscopy. Patient was found have elevated free T4 level and low TSH level. Decrease levothyroxine dose 100 g daily. Arrest patient has been afebrile. No diarrhea. No chest pain or shortness of breath. 03/26/2021 Patient is currently lying in the bed comfortably. Awake alert and oriented. Patient has indigestion following and recommends is is fluoroscopic esophageal study. Otherwise patient is tolerating oral diet. Afebrile. General surgery is on board. No other acute overnight issues. current medications reviewed. Objective - Vital Signs Vital signs: Vital Signs Temp 98 F 03/26/21 19:40 Pulse 72 03/26/21 19:40 Resp 17 03/26/21 20:00 BP 124/69 03/26/21 19:40 Pulse Ox 97 03/26/21 19:40 Intake & Output 03/26/21 03/26/21 03/27/21 06:59 18:59 06:59 Intake Total 350 Balance 350 Weight 45.359 kg Intake: Oral 350 Other: Voiding Method Toilet Toilet Toilet Bedside Commode # Voids 2 2 2 # Bowel Movements 1 - Exam PHYSICAL EXAMINATION: Patient is lying in the bed comfortably, no acute distress, awake alert and oriented. Patient is mildly short. HEENT: Normocephalic. Neck is supple. Pupils reactive. Nostrils clear. Oral cavity is moist. Neck reveals no JVD, carotid bruits, or thyromegaly. CHEST EXAMINATION: Trachea is central. Symmetrical expansion. Lung corrales clear to auscultation and percussion. CARDIAC: Normal S1, S2 with no gallops. No murmurs ABDOMEN: Soft. Bowel sounds normal. No organomegaly. No abdominal bruits. Extremities: reveal no edema. No clubbing or cyanosis Neurologically awake, alert, oriented x3 with well-coordinated movements. No focal deficits noted Skin: No rash or skin lesions. Psychiatric: Coperative. Nonsuicidal Musculoskeletal: No joint swelling or deformity. Normal range of motion. - Labs CBC & Chem 7: 03/27/21 05:20 03/24/21 06:10 Labs: Microbiology - Last 24 Hours (Table) 03/22/21 14:45 Blood Culture - Preliminary Blood No Growth after 96 hours 03/22/21 15:00 Blood Culture - Preliminary Blood No Growth after 96 hours Assessment and Plan Assessment: Chronic abdominal pain unintentional weight loss. Patient had extensive work-up done including EGD/colonoscopy, CT angiogram and upper GI small bowel series and also MRI of the pancreas. Unclear etiology. Hypokalemia due to poor oral intake. Hypothyroidism with elevated free T4 level and low TSH level. Decreased levothyroxine dose to 100 g daily. Anxiety/depression Ongoing nicotine addiction Hypertension Hyperlipidemia GERD DVT prophylaxis and GI prophylaxis Plan: Patient will be continued on symptomatic management for nausea. Start on oral diet advance as tolerated. GI and general surgery is on board. Patient is scheduled for esophageal fluoroscopic study for dysphagia. Further plans regarding endoscopy pending results. Continue to follow closely and replace electrolytes.
[2021-03-27 10:36] LABS: African American GFR (CKD) 98.9 (60.0-200.0); Anion Gap 4.1 mmol/L (4.00-12.00); BUN/Creat Ratio 38.57 Ratio (12.00-20.00); Calcium 8.7 mg/dL (8.7-10.3); Carbon Dioxide 29.9 mmol/L (21.6-31.8); Non-African American GFR(CKD) 85.4 (60.0-200.0)
[2021-03-27] MEDS ORDERED: PROPOFOL 10 MG/ML 20 ML VIAL IV ONE (10:59)
[2021-03-27] MEDS ORDERED: LIDOCAINE 1% INJ 10MG/ML (20 ML MDV) ONE (10:59)
[2021-03-27] MEDS ORDERED: IV FLUID CONTINUATION 1,000 ML IV ONE ×2 (11:01)
--- NOTE | 2021-03-27 11:44 | P.PCN ---
Date of Procedure: 03/27/21 Description of Procedure: PREOPERATIVE DIAGNOSIS: Dysphagia Atypical chest pain Epigastric abdominal pain Unintentional weight loss Tobacco abuse disorder Under weight, BMI 15.2 POSTOPERATIVE DIAGNOSIS: Gastritis. Gastroesophageal reflux disease. Diaphragmatic hiatal hernia Upper esophageal stenosis OPERATION: Esophagogastroduodenoscopy with rigid dilation, 51-Czech Esophagogastroduodenoscopy with biopsies along antrum. SURGEON: Eloisa Cope MD ANESTHESIA: MAC. INDICATIONS: The patient is a 76-year-old female who presents with a history of epigastric abdominal pain, dysphagia, atypical chest pain as a cause for hospitalization. Benefits and risks of the procedure were described. Informed consent was obtained. DESCRIPTION: The patient was brought into the endoscopy suite and laid in the left lateral decubitus position. An Olympus gastroscope was passed along the posterior oropharynx down to the distal esophagus where the squamocolumnar junction was encountered at 40 cm from the incisors. The stomach was entered and no bile reflux was found. Additional findings are listed below. Next a rigid dilator 51-Czech inserted over a guidewire was placed through the endoscope. The scope was removed and the dilator was placed over the guidewire. The dilator was placed at 45 cm from the incisors. Dilator was left in place for at least 2 minutes. The dilator and guidewire were removed. The Olympus endoscope was reinserted into the stomach. Biopsies with cold forceps were obt ained of the antrum. The first through third portion of the duodenum was examined and unremarkable. Retroflexion of the scope confirmed Hill grade 3 lower esophageal valve. The squamocolumnar junction demonstrated LA grade B erosive esophagitis. The stomach was desufflated. The patient tolerated the procedure well. FINDINGS: Squamocolumnar junction 40 cm from the incisors. Diaphragmatic hiatus at 43 cm. Hiatal hernia, 3 cm Hill grade 3 lower esophageal valve. LA grade B erosive esophagitis. No active duodenitis. Chronic gastritis Upper esophageal stenosis Poor dentition. Dilation upper esophageal stenosis to 51-Czech without mucosal injury RECOMMENDATIONS: Upper endoscopy as needed. Tobacco cessation Diet as tolerated Recommend outpatient manometry for distal esophageal spasm as a cause of epigastric abdominal pain
[2021-03-27 12:19] VITALS: BP 153/90; PULSE 54
--- NOTE | 2021-03-27 13:44 | P.PN ---
Progress Note - Text Progress Note Date: 03/27/21 Interval History: Patient was seen today as a consult follow up for her depression and anxiety. Her nurse claims that she has been doing fairly and offered no new complaints. Patient claims that she feels mild improvement in terms of her anxiety and mood. She continues to be concrete and gaurded. She was sitting with her son and eating her lunch today. She states that she still has no answer about her medical condition. She had a EGD this morning. She states that she was able to sleep fairly last night however was agreeable to have her Remeron increased to have better sleep for tonight. At this time patient denies any suicidal or homical ideations, intent or plan. Patient denies any auditory, visual hallucinations and denies any paranoia or delusions. Patient denies any side effects from the medications and has been compliant with meds. She did claim that she would be taking her medications when she is discharged and states that she also will be making and keeping her doctor's appointments. Mental Status Exam: General Appearance: Patient appears to be older than stated age is alert, vague at times however is directable. Patient appears to have fair hygiene and grooming wearing hospital gown with fair eye contact. Behavior: Patient is calmly lying in bed without any agitated behavior. Speech: Patient's speech is fluent and nonpressured. Mood/Affect: Patient reports their mood is "a bit better", affect is congruent Suicidality/Homicidality: Patient denies having any suicidal or homicidal ideation intent or plan. Perceptions: Patient denies any visual hallucinations and denies any auditory hallucinations Though content/process: There is no evidence of any delusional thought content and thought process is goal-directed. Vague. [place] Memory and concentration: AOX3, grossly intact for the purposes of this session. Judgment and insight: Chronically poor, improving mildly Assessment Major depressive disorder, mild Generalized anxiety disorder Nicotine dependence PLAN: -At this time patient DOES NOT meet criteria for inpatient psychiatric admission. -Would recommend the following medication changes/additions: Increase Remeron 30 mg daily at bedtime for mood/anxiety/appetite. increase Cymbalta 30 mg daily for mood/anxiety. -structural layout worker to provide patient with outpatient mental health/psychiatry resources for appropriate follow up upon discharge -Communicated plan to patient's nurse -At this time psychiatry will sign off -Please contact with any questions.
[2021-03-27] MEDS ORDERED: MIRTAZAPINE 15 MG TAB PO SCH (21:00)
[2021-03-28] MEDS ORDERED: DULoxetine HCL 30 MG CAPSULE.DR PO SCH (09:00)
== END 2021-03-27 16:36 | disposition home health service (06) | DRG 392 ==
LOC: EC 14:06 → 5NMEDONC 18:54
PROVIDERS: ADMIT Hospitalist; ATTEND Hospitalist
PROC: 0D758ZZ Dilation of Esophagus, Via Natural or Artificial Opening Endoscopic (ICD-10-PCS; principal; 2021-03-27 10:50)
PROC: 0DB78ZX Excision of Stomach, Pylorus, Via Natural or Artificial Opening Endoscopic, Diagnostic (ICD-10-PCS; 2021-03-27 10:50)
DX: K22.2 Esophageal obstruction (principal); K22.10 Ulcer of esophagus without bleeding; Z68.1 Body mass index [BMI] 19.9 or less, adult; E44.0 Moderate protein-calorie malnutrition; R53.1 Weakness; K21.9 Gastro-esophageal reflux disease without esophagitis; E78.5 Hyperlipidemia, unspecified; I71.4 Abdominal aortic aneurysm, without rupture; E87.6 Hypokalemia; R62.7 Adult failure to thrive; F17.200 Nicotine dependence, unspecified, uncomplicated; Z79.890 Hormone replacement therapy; G89.29 Other chronic pain; K29.50 Unspecified chronic gastritis without bleeding; F32.9 Major depressive disorder, single episode, unspecified; F41.1 Generalized anxiety disorder; I10 Essential (primary) hypertension; R13.10 Dysphagia, unspecified; R07.89 Other chest pain; K44.9 Diaphragmatic hernia without obstruction or gangrene; Z87.11 Personal history of peptic ulcer disease; E03.9 Hypothyroidism, unspecified; H91.90 Unspecified hearing loss, unspecified ear; Z91.19 Patient's noncompliance with other medical treatment and regimen; K59.09 Other constipation; Z86.010 Personal history of colon polyps; Z90.49 Acquired absence of other specified parts of digestive tract; Z90.710 Acquired absence of both cervix and uterus
CPT/HCPCS: 36415; 43239; 43249; 74210; 80048; 80053; 81001; 82607; 82747; 83605; 83735; 84132; 84439; 84443; 84484; 85025; 85610; 85730; 87040; 88305; 93005; 96361; 96374; 96375; 99285

== ENCOUNTER 2023-05-13 09:17 | Day surgery (SDC) | payer MEDICARE, OTHER ==
[2023-05-07 13:28] VITALS: BMI 17.4
--- NOTE | 2023-05-13 08:51 | P.GSHP ---
History of Present Illness H&P Date: 05/13/23 CHIEF COMPLAINT: GERD and colon screen HISTORY OF PRESENT ILLNESS: The patient is a 78-year-old female who presents with gastroesophageal reflux disease and need for colon screen. Upper and lower endoscopy were offered for further evaluation and management. PAST MEDICAL HISTORY: Please see list. PAST SURGICAL HISTORY: Please see list. MEDICATIONS: Please see list. ALLERGIES: Please see list. SOCIAL HISTORY: No illicit drug use FAMILY HISTORY: No reports of Crohn disease or ulcerative colitis. REVIEW OF ORGAN SYSTEMS: CONSTITUTIONAL: No reports of fevers or chills. GI: Denies any blood in stools or constipation. PHYSICAL EXAM: VITAL SIGNS: Stable GENERAL: Well-developed pleasant in no acute distress. HEENT: No scleral icterus. Extraocular movements grossly intact. Moist buccal mucosa. NECK: Supple without lymphadenopathy. CHEST: Unlabored respirations. Equal bilateral excursions. CARDIOVASCULAR: Regular rate and rhythm. Distal 2+ pulses. ABDOMEN: Soft, nondistended. MUSCULOSKELETAL: No clubbing, cyanosis, or edema. ASSESSMENT: 1. Gastroesophageal reflux disease 2. Colon screen. PLAN: 1. Recommend proceeding with an upper and lower endoscopy Past Medical History Past Medical History: COPD, GERD/Reflux, Hyperlipidemia, Hypertension, Osteoarthritis (OA), Thyroid Disorder Additional Past Medical History / Comment(s): Hiatal hernia, anemia, difficulty swallowing and throat pain, frequent urination, varicose veins. History of Any Multi-Drug Resistant Organisms: None Reported Past Surgical History: Appendectomy, Back Surgery, Cholecystectomy, Hysterectomy, Joint Replacement, Orthopedic Surgery Additional Past Surgical History / Comment(s): Right knee arthroscopy, COLONOSCOPY/EGD, bilateral total hip replacements. Past Anesthesia/Blood Transfusion Reactions: Previous Problems w/ Anesthesia Additional Past Anesthesia/Blood Transfusion Reaction / Comment(s): "Blood pressure went low during one surgery." Past Psychological History: Anxiety, Depression Smoking Status: Current every day smoker Past Alcohol Use History: Rare Additional Past Alcohol Use History / Comment(s): Smokes 1-2 packs daily, started at age 17. Past Drug Use History: None Reported - Past Family History Mother History Unknown: Yes Family Medical History: Cancer Father History Unknown: Yes Medications and Allergies Home Medications Medication Instructions Recorded Confirmed Type Cariprazine HCl [Vraylar] 1.5 mg PO QAM 05/07/23 05/07/23 History Eszopiclone [Lunesta] 2 mg PO HS 05/07/23 05/07/23 History Famotidine [Pepcid] 20 mg PO BID 05/07/23 05/07/23 History Inhaler (Unknown Name) 1 puff INHALATION DIRECTED PRN 05/07/23 05/07/23 History Levothyroxine Sodium [Synthroid] 75 mcg PO QAM 05/07/23 05/07/23 History Pantoprazole [Protonix] 40 mg PO BID 05/07/23 05/07/23 History Rosuvastatin Calcium [Crestor] 40 mg PO QAM 05/07/23 05/07/23 History Spironolactone [Aldactone] 25 mg PO QAM 05/07/23 05/07/23 History Vilazodone HCl [Viibryd] 20 mg PO QAM 05/07/23 05/07/23 History amLODIPine [Norvasc] 5 mg PO QAM 05/07/23 05/07/23 History Allergies Allergy/AdvReac Type Severity Reaction Status Date / Time No Known Allergies Allergy Verified 05/07/23 12:54
[~2023-05-13 09:17] MED LIST changes: -LIDOCAINE 1% 20 ML VIAL (10MG/ML) FOR IV START INTRADERMA PRN
[2023-05-13 09:50] VITALS: RESP 16; TEMP 97.4
[2023-05-13] MEDS ORDERED: PROPOFOL 10 MG/ML 20 ML VIAL IV ONE (10:17)
[2023-05-13] MEDS ORDERED: LIDOCAINE 1% INJ 10MG/ML (20 ML MDV) ONE (10:17)
--- NOTE | 2023-05-13 10:42 | P.PCN ---
Date of Procedure: 05/13/23 Description of Procedure: PREOPERATIVE DIAGNOSIS: Gastroesophageal reflux disease Epigastric abdominal pain Dysphagia POSTOPERATIVE DIAGNOSIS: Upper esophageal stenosis Severe gastritis with recent bleed Gastric ulcer, acute bleeding Diaphragmatic hiatal hernia Presbyesophagus OPERATION: Esophagogastroduodenoscopy with rigid dilator over the guidewire 51 Fr with dilation Esophagogastroduodenoscopy with cold forceps biopsies stomach/antrum SURGEON: Eloisa Cope MD ANESTHESIA: MAC. INDICATIONS: The patient is a 78-year-old female who presents with a history of gastroesophageal reflux disease with abdominal pain. Benefits and risks of the procedure were described. Informed consent was obtained. DESCRIPTION: The patient was brought into the endoscopy suite and laid in the left lateral decubitus position. After a timeout was confirmed, the procedure was initiated. An Olympus gastroscope was passed into the posterior oropharynx where an upper esophageal stenosis was identified. The scope was passed down to the distal esophagus. To address the upper esophageal stenosis, rigid dilator over guidewire was selected. Next using an Syrian rigid dilator, a guidewire was placed through the gastroscope. Next the scope was withdrawn. A 51-Hungarian rigid Syrian dilator was passed carefully along the posterior oropharynx to 45 cm and left in place for 2-3 minutes stretch. The dilator was withdrawn including the guidewire. The scope was reentered along the posterior oropharynx with no findings of full- thickness tear of the upper esophageal sphincter. Additional findings below. Within the stomach, severe acute gastritis with gastric ulcerations were identified along the body of the stomach with cold forceps biopsies obtained. The lower esophageal valve was evaluated with Hill grade 3 lower esophageal valve. LA grade B erosive esophagitis was identified. No full-thickness injury was encountered. The GI tract was desufflated. The patient tolerated the procedure well. FINDINGS: Upper esophageal stenosis dilated 51-Hungarian rigid dilator Diaphragmatic hiatus at 40 cm from the incisors Squamocolumnar junction 39 cm from the incisors. Severe gastritis along the gastric body and fundus cold forceps biopsies obtained Acute gastric ulcerations identified. Duodenum with mild duodenitis LA grade B erosive esophagitis Hill grade 3 lower esophageal valve. RECOMMENDATIONS: Omeprazole 40 mg daily Repeat upper endoscopy 4 weeks
--- NOTE | 2023-05-13 11:20 | P.PCN ---
Date of Procedure: 05/13/23 Description of Procedure: PREOPERATIVE DIAGNOSIS: Personal history of colon polyps Colonoscopy screening POSTOPERATIVE DIAGNOSIS: Tubular adenoma hepatic flexure Tubular adenoma transverse colon Tubular adenoma ascending colon OPERATION: Colonoscopy to the ileocecal valve and appendiceal orifice, cecum Colonoscopy with hot snare polypectomy SURGEON: Eloisa Cope MD. ANESTHESIA: MAC. INDICATIONS: The patient is an 78-year-old female who presents personal history of colon polyps. Last colonoscopy 5 years. Benefits and risks were described and informed consent was obtained. DESCRIPTION OF PROCEDURE: The patient had undergone Sutab prep. The patient had been brought into the operating room and laid in the left lateral decubitus position. After adequate intravenous sedation, the rectum was examined with 2% lidocaine jelly. The prostate was unremarkable. External hemorrhoids were encountered. The rectal tone was within normal limits. No lesions were palpated in the rectal vault. An Olympus colonoscope was advanced until the cecum, ileocecal valve and appendiceal orifice were clearly viewed. The prep was poor to fair with semisolid stool. No large sigmoid diverticulosis was encountered. Colonic polyps were found and removed. No evidence of focal colitis was found. Retro flexion of the scope demonstrated grade 2 internal hemorrhoids without active bleeding or inflammation. The colon was desufflated. The patient had tolerated the procedure well. Withdrawal time was over 6 minutes. FINDINGS: Aronchick preparation quality scale 3+ (1-5) Internal hemorrhoids, grade 2 External hemorrhoids, grade 2 No arteriovenous malformations. No large sigmoid diverticulosis Semisolid stool at cecum limiting view Removal of 5 polyps: - Snare polypectomy ascending colon 2, 5 to 8 mm tubulovillous adenoma - Snare polypectomy transverse colon 2, 8 to 10 mm tubular adenoma - Snare polypectomy hepatic flexure, 8 mm tubulovillous adenoma No focal colitis. RECOMMENDATIONS: Given severity of tubular adenomas, recommend repeat colonoscopy 2 years, 2024 Plan - Discharge Summary Discharge Rx Participant: Yes New Discharge Prescriptions: New Sucralfate [Carafate] 1 gm PO BID #30 tablet Continue Pantoprazole [Protonix] 40 mg PO BID amLODIPine [Norvasc] 5 mg PO QAM Spironolactone [Aldactone] 25 mg PO QAM Levothyroxine Sodium [Synthroid] 75 mcg PO QAM Inhaler (Unknown Name) 1 puff INHALATION DIRECTED PRN PRN Reason: COPD Eszopiclone [Lunesta] 2 mg PO HS Vilazodone HCl [Viibryd] 20 mg PO QAM Famotidine [Pepcid] 20 mg PO BID Rosuvastatin Calcium [Crestor] 40 mg PO QAM Cariprazine HCl [Vraylar] 1.5 mg PO QAM Discharge Medication List Cariprazine HCl [Vraylar] 1.5 mg PO QAM 05/07/23 [History] Eszopiclone [Lunesta] 2 mg PO HS 05/07/23 [History] Famotidine [Pepcid] 20 mg PO BID 05/07/23 [History] Inhaler (Unknown Name) 1 puff INHALATION DIRECTED PRN 05/07/23 [History] Levothyroxine Sodium [Synthroid] 75 mcg PO QAM 05/07/23 [History] Pantoprazole [Protonix] 40 mg PO BID 05/07/23 [History] Rosuvastatin Calcium [Crestor] 40 mg PO QAM 05/07/23 [History] Spironolactone [Aldactone] 25 mg PO QAM 05/07/23 [History] Vilazodone HCl [Viibryd] 20 mg PO QAM 05/07/23 [History] amLODIPine [Norvasc] 5 mg PO QAM 05/07/23 [History] Sucralfate [Carafate] 1 gm PO BID #30 tablet 05/13/23 [Rx] Follow up Appointment(s)/Referral(s): Eloisa Cope MD [STAFF PHYSICIAN] - 06/02/23 1:30 pm Patient Instructions/Handouts: *Surgery [facility] - (Anesthesia) Discharge Instructions Outpatient Surgery, Colorectal Polyps (GEN), Peptic Ulcer (DC), Esophageal Dilation (DC), How to Stop Smoking (ED) Activity/Diet/Wound Care/Special Instructions: Repeat colonoscopy 2 years, 2024 Discharge Disposition: HOME SELF-CARE
[2023-05-13 11:44] VITALS: BP 131/69; PULSE 66
== END 2023-05-13 12:09 | disposition home or self-care (01) ==
LOC: ORWHC2ENDO 09:17
PROVIDERS: ATTEND Surgery Plastic and Reconstructive Surgery
DX: Z12.11 Encounter for screening for malignant neoplasm of colon (principal); D12.3 Benign neoplasm of transverse colon; K21.9 Gastro-esophageal reflux disease without esophagitis; K22.2 Esophageal obstruction; K29.50 Unspecified chronic gastritis without bleeding; K25.4 Chronic or unspecified gastric ulcer with hemorrhage; K44.9 Diaphragmatic hernia without obstruction or gangrene; K64.1 Second degree hemorrhoids; K64.4 Residual hemorrhoidal skin tags; J44.9 Chronic obstructive pulmonary disease, unspecified; E78.5 Hyperlipidemia, unspecified; I10 Essential (primary) hypertension; M19.90 Unspecified osteoarthritis, unspecified site; E03.9 Hypothyroidism, unspecified; Z90.49 Acquired absence of other specified parts of digestive tract; Z90.710 Acquired absence of both cervix and uterus; F41.9 Anxiety disorder, unspecified; F32.A Depression, unspecified; F17.210 Nicotine dependence, cigarettes, uncomplicated; Z86.59 Personal history of other mental and behavioral disorders; Z79.890 Hormone replacement therapy; Z79.899 Other long term (current) drug therapy
CPT/HCPCS: 88305; 45385; 43239; 43248; J2001; J2704; 43249